=== PATIENT | female | born 1990 | race American Indian/Alaskan Native ===

== ENCOUNTER 2016-11-09 06:02 | Inpatient (IN) | payer MEDICAID ==
--- NOTE | 2016-11-09 08:39 | PCM.LDHP ---
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: Reports: : 7 Para: 4 LMP (Approximate): Other (See Below) (unknown care) - Infectious Disease History Infectious Disease History: Reports: Chicken Pox Social & Family History - Tobacco Use Smoking Status *Q: Current Every Day Smoker Years of Tobacco use: 14 Packs/Tins Daily: 1 Second Hand Smoke Exposure: No - Caffeine Use Caffeine Use: Reports: Tea - Alcohol Use Days Per Week of Alcohol Use: 0 - Recreational Drug Use Recreational Drug Use: No H&P Review of Systems - Review of Systems: Review Of Systems: See Below General: Reports: No Symptoms HEENT: Reports: No Symptoms Pulmonary: Reports: No Symptoms Cardiovascular: Reports: No Symptoms Gastrointestinal: Reports: No Symptoms Genitourinary: Reports: No Symptoms Musculoskeletal: Reports: No Symptoms Skin: Reports: No Symptoms Psychiatric: Reports: No Symptoms Neurological: Reports: No Symptoms Hematologic/Lymphatic: Reports: No Symptoms Immunologic: Reports: No Symptoms L&D Exam - Exam Exam: See Below - Vital Signs Weight: 56.7 kg - Exam General: Alert, Oriented HEENT: PERRLA, Conjunctiva Clear, EACs Clear, EOMI, Hearing Intact, Mucosa Moist & [place], Nares Patent, Normal Nasal Septum, Posterior Pharynx Clear, TMs Clear Neck: Supple, Trachea Midline Lungs: Clear to Auscultation, Normal Respiratory Effort Cardiovascular: Regular Rate, Regular Rhythm GI/Abdominal Exam: Normal Bowel Sounds, Soft, Non-Tender, No Organomegaly, No Distention, No Abnormal Bruit, No Mass, Pelvis Stable Genitourinary: Normal external exam, Normal bimanual exam Back Exam: Normal Inspection, Full Range of Motion Extremities: Normal Inspection, Normal Range of Motion, Non-Tender, No Pedal Edema, Normal Capillary Refill Skin: Warm, Dry, Intact Neurological: Cranial Nerves Intact, Reflexes Equal Bilateral Psychiatric: Alert, Normal Affect, Normal Mood - Patient Data Lab Results Last 24 hrs: Laboratory Results - last 24 hr 11/09/16 11/09/16 Range/Units 06:52 07:00 WBC 12.3 H (4.5-11.0) K/uL RBC 3.81 (3.30-5.50) M/uL Hgb 8.4 L (12.0-15.0) g/dL Hct 27.5 L (36.0-48.0) % MCV 72 L (80-98) fL MCH 22 L (27-31) pg MCHC 31 L (32-36) % Plt Count 191 (150-400) K/uL Neut % (Auto) 79 H (36-66) % Lymph % (Auto) 15 L (24-44) % Delta % (Auto) 5 (2-6) % Eos % (Auto) 1 L (2-4) % Baso % (Auto) 0 (0-1) % Blood Type A POSITIVE Gel Antibody Screen Negative Result Diagrams: 11/09/16 06:52 - Problem List (1) No care in current in third trimester SNOMED Code(s): 791906571, 361650582 ICD Code: O09.33 - SUPRVSN OF PREG W INSUFFICIENT ANTENAT CARE, THIRD TRIMESTER Status: Acute Current Visit: Yes (2) Limited care in third trimester SNOMED Code(s): 947903623, 460742275 ICD Code: O09.33 - SUPRVSN OF PREG W INSUFFICIENT ANTENAT CARE, THIRD TRIMESTER Status: Acute Current Visit: Yes (3) GBS (group B streptococcus) infection SNOMED Code(s): 797594223 ICD Code: A49.1 - STREPTOCOCCAL INFECTION, UNSPECIFIED SITE Status: Acute Current Visit: Yes (4) Multiple gestation Status: Acute Current Visit: Yes Qualifiers: Multiple gestation fetus number: twin gestation Trimester: third trimester (5) Drug use affecting in third trimester SNOMED Code(s): 63938652, 03924081, 583204947 ICD Code: O99.323 - DRUG USE COMPLICATING , THIRD TRIMESTER Status : Acute Current Visit: Yes Problem List Initiated/Reviewed/Updated: Yes Orders Last 24hrs: Active Orders 24 hr Category Date Time Status DRUG SCREEN, URINE [URCHEM] Stat Lab 07/24/17 07:43 Ordered HEPATITIS B SURFACE ANTIGEN [REF] Routine Lab 11/09/16 07:00 Received HEPATITIS C ANTIBODY [REF] Routine Lab 11/09/16 07:00 Received HIV RAPID SCREEN [CHEM] Routine Lab 11/09/16 07:00 Received PATIENT RETYPE [BBK] Routine Lab 11/09/16 07:00 Results RPR-TREP PALLIDIUM AB,REFLEX [REF] Routine Lab 11/09/16 07:00 Received TYPE AND SCREEN [BBK] Routine Lab 11/09/16 07:00 Results Assessment/Plan Comment:: 11/09/2016 26 yo came in in active labor see labor and delivery note
[2016-11-09] MEDS ORDERED: Ibuprofen 600 MG Tab PO PRN (08:44)
[2016-11-09] MEDS ORDERED: Sodium Chloride 0.9% 10 ML Syringe FLUSH PRN (08:51)
--- NOTE | 2016-11-09 09:17 | PCM.DEL ---
L & D Note - General Info Date of Service: 11/09/16 - Delivery Note Labor: Spontaneous Delivery Outcome: Livebirth Delivery Method: Spontaneous Vaginal Delivery Delivery Mode: Spontaneous Nuchal Cord: None Anesthesia Type: None Amniotic Fluid Description: Clear Episiotomy Type: None Laceration: None Placenta: Intact, Spontaneous Cord: 3 Vessels Estimated Blood Loss: 350 [place]: Bulb Syringe, Stimulated, Warmed, Warmer Used Provider: Comfort Newman (see notes ) Post Delivery Events: Other (see below) (unexpected twin delivery) Second Stage Interventions: Reports: Encouragement Given, Pushing Effectively Delivery Comments (Free Text/Narrative):: 11/09/2016 26 yo G7 now P6 came in in active labor to on 11/09/2016 has unknown care and unknown gestation. Dr. Lake delivered the first baby A precipitously normal spontaneous vaginal delivery in SENTHIL position at 0611, then while proceeding to assess patients placenta was noted to still have an enlarged uterus, bimanual exam performed and another baby was noted. Baby B delivered normal spontaneous vaginal delivery in SENTHIL position en caul at 0621. Baby A--9/9/9, weight 4lbs, 11oz, and bulb suctioned, warmed, stimulated, and dried-3 vessel cord Baby B--6/8/8, weight 4lbs 8.5oz, and bulb suctioned, warmed, stimulated, and dried-3 vessel cord Placenta spontaneous and intact-will send to path [id number], no lacerations noted to vagina, perineum, cervix or rectum Baby A to nursery for assessment Baby B under warmer for assessment Mother stable in labor and delivery room - General Info Date of Service: 11/09/16 Admission Dx/Problem (Free Text): Admission Diagnosis/Problem Admission Diagnosis/Problem Functional Status: Reports: Pain Controlled - Review of Systems General: Reports: No Symptoms HEENT: Reports: No Symptoms Pulmonary: Reports: No Symptoms Cardiovascular: Reports: No Symptoms Gastrointestinal: Reports: No Symptoms Genitourinary: Reports: No Symptoms Musculoskeletal: Reports: No Symptoms Skin: Reports: No Symptoms Neurological: Reports: No Symptoms Psychiatric: Reports: No Symptoms - Patient Data Weight - most recent: 56.7 kg Lab Results last 24 hrs: Laboratory Results - last 24 hr 07/24/17 07/24/17 07/24/17 Range/Units 06:52 07:00 07:43 WBC 12.3 H (4.5-11.0) K/uL RBC 3.81 (3.30-5.50) M/uL Hgb 8.4 L (12.0-15.0) g/dL Hct 27.5 L (36.0-48.0) % MCV 72 L (80-98) fL MCH 22 L (27-31) pg MCHC 31 L (32-36) % Plt Count 191 (150-400) K/uL Neut % (Auto) 79 H (36-66) % Lymph % (Auto) 15 L (24-44) % Isabela % (Auto) 5 (2-6) % Eos % (Auto) 1 L (2-4) % Baso % (Auto) 0 (0-1) % Urine Opiates Screen Positive H (NEGATIVE) Ur Oxycodone Screen Negative (NEGATIVE) Urine Methadone Screen Negative (NEGATIVE) Ur Propoxyphene Screen Negative (NEGATIVE) Ur Barbiturates Screen Negative (NEGATIVE) Ur Tricyclics Screen Negative (NEGATIVE) Ur Phencyclidine Scrn Negative (NEGATIVE) Ur Amphetamine Screen Positive H (NEGATIVE) U Methamphetamines Scrn Positive H (NEGATIVE) Urine MDMA Screen Negative (NEGATIVE) U Benzodiazepines Scrn Negative (NEGATIVE) U Cocaine Metab Screen Negative (NEGATIVE) U Marijuana (THC) Screen Positive H (NEGATIVE) Blood Type A POSITIVE Gel Antibody Screen Negative Med Orders - Current: Current Medications Oxytocin/Sodium Chloride (Pitocin In Ns 20 Units/1,000 Ml) 20 unit in 1,000 mls @ 2,997 mls/hr IV ONETIME ONE; 999 MUNITS/MIN PRN Reason: Protocol Stop: 11/09/16 09:22 Ibuprofen (Motrin) 600 mg PO Q6H PRN PRN Reason: Pain Last Admin: 11/09/16 08:57 Dose: 600 mg Sodium Chloride (Saline Flush) 10 ml FLUSH ASDIRECTED PRN PRN Reason: Keep Vein Open Discontinued Medications Oxytocin/Sodium Chloride (Pitocin In Ns 20 Units/1,000 Ml) Confirm Administered Dose 20 unit in 1,000 mls @ as directed .ROUTE .STK-MED ONE Stop: 11/09/16 06:14 Last Admin: 11/09/16 06:15 Dose: 20 unit - Exam General: alert, oriented HEENT: Pupils equal, Pupils reactive, EOMI, Mucous membr. moist/pink Neck: supple Lungs: Clear to Auscultation, Normal Respiratory Effort Cardiovascular: Regular Rate, Regular Rhythm GI/Abdominal Exam: Normal Bowel Sounds, Soft, Non-Tender, No Organomegaly, No Distention, No Abnormal Bruit, No Mass, Pelvis Stable (Female) Exam: Normal External Exam, Normal Bimanual Exam Back Exam: Normal Inspection, Full Range of Motion Extremities: Normal Inspection, Normal Range of Motion, Non-Tender, No Pedal Edema, Normal Capillary Refill Skin: warm, dry, intact Neurological: no new focal deficit Psy/Mental Status: alert, normal affect, normal mood - Problem List & Annotations (1) No care in current in third trimester SNOMED Code(s): 012298466, 606540686 Code(s): O09.33 - SUPRVSN OF PREG W INSUFFICIENT ANTENAT CARE, THIRD TRIMESTER Status: Acute Current Visit: Yes (2) Limited care in third trimester SNOMED Code(s): 938348033, 574686088 Code(s): O09.33 - SUPRVSN OF PREG W INSUFFICIENT ANTENAT CARE, THIRD TRIMESTER Status: Acute Current Visit: Yes (3) GBS (group B streptococcus) infection SNOMED Code(s): 885411287 Code(s): A49.1 - STREPTOCOCCAL INFECTION, UNSPECIFIED SITE Status: Acute Current Visit: Yes (4) Multiple gestation Status: Acute Current Visit: Yes Qualifiers: Multiple gestation fetus number: twin gestation Trimester: third trimester (5) Drug use affecting in third trimester SNOMED Code(s): 18652765, 71764704, 459214730 Code(s): O99.323 - DRUG USE COMPLICATING , THIRD TRIMESTER Status : Acute Current Visit: Yes - Problem List Review Problem List Initiated/Reviewed/Updated: Yes - My Orders Last 24 Hours: My Active Orders 11/09/16 05:55 Patient Status [ADT] Routine Notify Provider Vital Signs [RC] PRN Vital Signs [RC] PER UNIT ROUTINE 11/09/16 06:21 Patient Status [ADT] Routine 11/09/16 07:00 HEPATITIS B SURFACE ANTIGEN [REF] Routine HEPATITIS C ANTIBODY [REF] Routine HIV RAPID SCREEN [CHEM] Routine PATIENT RETYPE [BBK] Routine RPR-TREP PALLIDIUM AB,REFLEX [REF] Routine TYPE AND SCREEN [BBK] Routine 11/09/16 08:44 Ibuprofen [Motrin] 600 mg PO Q6H PRN 11/09/16 08:51 Ambulate [RC] PER UNIT ROUTINE Communication Order [RC] ASDIRECTED Heart Tones [RC] PER UNIT ROUTINE Notify Provider [RC] PRN Sodium Chloride 0.9% [Saline Flush] 10 ml FLUSH ASDIRECTED PRN DVT/VTE Prophylaxis Reflex [OM.PC] Routine Saline Lock Insert [OM.PC] Routine 11/09/16 08:54 VTE/DVT Education [RC] Click to Edit 11/09/16 08:55 Vital Signs [RC] PFP Consult to Home Health [CONS] Routine Consult to Ice Cream Chef [CONS] Routine Assess Lochia [WOMSER] Per Unit Routine Assess Uterine Involution [WOMSER] Per Unit Routine Resuscitation Status Routine 11/09/16 09:02 Oxytocin/Normal Saline [Pitocin in NS 20 Units/1,000 ML] 20 unit in 1,000 ml IV ONETIME 11/09/16 Breakfast Regular Diet [DIET] - Assessment Assessment:: 11/09/2016 Normal Spontaneous Vaginal Delivery of Multiple Gestation with unknown gestation No or little/unknown care Drug use in Precipitous delivery Unknown GBS Unknown Lab - Plan Plan:: 11/09/2016 26 yo came in in active labor see labor and delivery note 11/09/2016 UDS screen Routine Cares Social Service Consult Will plan discharge today if stable since babies are being transported to [place]
[2016-11-09] MEDS ORDERED: Misoprostol 200 MCG Tab ONE (09:23)
[2016-11-09] MEDS ORDERED: Carboprost Tromethamine 250 MCG/1 ML Amp ONE ×2 (09:24→09:53)
[2016-11-09] MEDS ORDERED: Methylergonovine 0.2 MG/1 ML Amp ONE (09:24)
[2016-11-09] MEDS ORDERED: Misoprostol 200 MCG Tab PO ONE (09:30)
[2016-11-09] MEDS ORDERED: Methylergonovine 0.2 MG/1 ML Amp IM PRN (09:30)
[2016-11-09] MEDS ORDERED: Acetaminophen/HYDROcodone 325-5 MG Tab PO PRN (09:31)
--- NOTE | 2016-11-09 09:35 | PCM.PNPP ---
- General Info Date of Service: 11/09/16 - Review of Systems General: Reports: No Symptoms HEENT: Reports: No Symptoms Pulmonary: Reports: No Symptoms Cardiovascular: Reports: No Symptoms Gastrointestinal: Reports: No Symptoms Genitourinary: Reports: No Symptoms Musculoskeletal: Reports: No Symptoms Skin: Reports: No Symptoms Neurological: Reports: No Symptoms Psychiatric: Reports: No Symptoms - General Info Date of Service: 11/09/16 - Patient Data Weight - most recent: 56.7 kg Lab Results - last 24 hrs: Laboratory Results - last 24 hr 11/09/16 11/09/16 11/09/16 Range/Units 06:52 07:00 07:00 WBC 12.3 H (4.5-11.0) K/uL RBC 3.81 (3.30-5.50) M/uL Hgb 8.4 L (12.0-15.0) g/dL Hct 27.5 L (36.0-48.0) % MCV 72 L (80-98) fL MCH 22 L (27-31) pg MCHC 31 L (32-36) % Plt Count 191 (150-400) K/uL Neut % (Auto) 79 H (36-66) % Lymph % (Auto) 15 L (24-44) % Hale % (Auto) 5 (2-6) % Eos % (Auto) 1 L (2-4) % Baso % (Auto) 0 (0-1) % Urine Opiates Screen (NEGATIVE) Ur Oxycodone Screen (NEGATIVE) Urine Methadone Screen (NEGATIVE) Ur Propoxyphene Screen (NEGATIVE) Ur Barbiturates Screen (NEGATIVE) Ur Tricyclics Screen (NEGATIVE) Ur Phencyclidine Scrn (NEGATIVE) Ur Amphetamine Screen (NEGATIVE) U Methamphetamines Scrn (NEGATIVE) Urine MDMA Screen (NEGATIVE) U Benzodiazepines Scrn (NEGATIVE) U Cocaine Metab Screen (NEGATIVE) U Marijuana (THC) Screen (NEGATIVE) HIV-1 Ab Rapid Screen Non-reactive (NON-REACT.) Blood Type A POSITIVE Gel Antibody Screen Negative 11/09/16 Range/Units 07:43 WBC (4.5-11.0) K/uL RBC (3.30-5.50) M/uL Hgb (12.0-15.0) g/dL Hct (36.0-48.0) % MCV (80-98) fL MCH (27-31) pg MCHC (32-36) % Plt Count (150-400) K/uL Neut % (Auto) (36-66) % Lymph % (Auto) (24-44) % Hale % (Auto) (2-6) % Eos % (Auto) (2-4) % Baso % (Auto) (0-1) % Urine Opiates Screen Positive H (NEGATIVE) Ur Oxycodone Screen Negative (NEGATIVE) Urine Methadone Screen Negative (NEGATIVE) Ur Propoxyphene Screen Negative (NEGATIVE) Ur Barbiturates Screen Negative (NEGATIVE) Ur Tricyclics Screen Negative (NEGATIVE) Ur Phencyclidine Scrn Negative (NEGATIVE) Ur Amphetamine Screen Positive H (NEGATIVE) U Methamphetamines Scrn Positive H (NEGATIVE) Urine MDMA Screen Negative (NEGATIVE) U Benzodiazepines Scrn Negative (NEGATIVE) U Cocaine Metab Screen Negative (NEGATIVE) U Marijuana (THC) Screen Positive H (NEGATIVE) HIV-1 Ab Rapid Screen (NON-REACT.) Blood Type Gel Antibody Screen Med Orders - Current: Current Medications Ibuprofen (Motrin) 600 mg PO Q6H PRN PRN Reason: Pain Last Admin: 11/09/16 08:57 Dose: 600 mg Sodium Chloride (Saline Flush) 10 ml FLUSH ASDIRECTED PRN PRN Reason: Keep Vein Open Discontinued Medications Carboprost Tromethamine (Hemabate Ds) Confirm Administered Dose 250 mcg .ROUTE .STK-MED ONE Stop: 11/09/16 09:25 Oxytocin/Sodium Chloride (Pitocin In Ns 20 Units/1,000 Ml) Confirm Administered Dose 20 unit in 1,000 mls @ as directed .ROUTE .STK-MED ONE Stop: 11/09/16 06:14 Last Admin: 11/09/16 06:15 Dose: 20 unit Oxytocin/Sodium Chloride (Pitocin In Ns 20 Units/1,000 Ml) 20 unit in 1,000 mls @ 2,997 mls/hr IV ONETIME ONE; 999 MUNITS/MIN PRN Reason: Protocol Stop: 11/09/16 09:22 Methylergonovine Maleate (Methergine) Confirm Administered Dose 0.2 mg .ROUTE .STK-MED ONE Stop: 11/09/16 09:25 Last Admin: 11/09/16 09:27 Dose: 0.2 mg Misoprostol (Cytotec) Confirm Administered Dose 800 mcg .ROUTE .STK-MED ONE Stop: 11/09/16 09:24 Last Admin: 11/09/16 09:29 Dose: 800 mcg - Interaction Support Person: Significant Other - Recovery Exam Fundal Tone: Firm Fundal Level: 1 Fingerbreadths Below Umbilicus Fundal Placement: Midline Lochia Amount: Moderate Lochia Color: Rubra/Red Episiotomy/Laceration: None - Exam General: alert, oriented HEENT: Pupils equal Neck: supple Lungs: Clear to Auscultation, Normal Respiratory Effort Cardiovascular: Regular Rate, Regular Rhythm GI/Abdominal Exam: Normal Bowel Sounds, Soft, Non-Tender, No Organomegaly, No Distention, No Abnormal Bruit, No Mass, Pelvis Stable Extremities: Normal Inspection, Normal Range of Motion, Non-Tender, No Pedal Edema, Normal Capillary Refill Skin: warm, dry, intact Neurological: no new focal deficit Psy/Mental Status: alert, normal affect, normal mood Physical Findings Comment:: bimanual exam performed, no clots noted, no hematoma or lacerations noted - Problem List & Annotations (1) No care in current in third trimester SNOMED Code(s): 484933142, 917687430 Code(s): O09.33 - SUPRVSN OF PREG W INSUFFICIENT ANTENAT CARE, THIRD TRIMESTER Status: Acute Current Visit: Yes (2) Limited care in third trimester SNOMED Code(s): 501332145, 992935231 Code(s): O09.33 - SUPRVSN OF PREG W INSUFFICIENT ANTENAT CARE, THIRD TRIMESTER Status: Acute Current Visit: Yes (3) GBS (group B streptococcus) infection SNOMED Code(s): 667388833 Code(s): A49.1 - STREPTOCOCCAL INFECTION, UNSPECIFIED SITE Status: Acute Current Visit: Yes (4) Multiple gestation Status: Acute Current Visit: Yes Qualifiers: Multiple gestation fetus number: twin gestation Trimester: third trimester (5) Drug use affecting in third trimester SNOMED Code(s): 55684136, 11513835, 380314955 Code(s): O99.323 - DRUG USE COMPLICATING , THIRD TRIMESTER Status : Acute Current Visit: Yes (6) Anemia complicating SNOMED Code(s): 71912480 Code(s): O99.019 - ANEMIA COMPLICATING , UNSPECIFIED TRIMESTER Status: Acute Current Visit: Yes (7) hemorrhage SNOMED Code(s): 14581883 Code(s): O72.1 - OTHER IMMEDIATE HEMORRHAGE Status: Acute Current Visit: Yes - Problem List Review Problem List Initiated/Reviewed/Updated: Yes - My Orders Last 24 Hours: My Active Orders 11/09/16 05:55 Patient Status [ADT] Routine Notify Provider Vital Signs [RC] PRN Vital Signs [RC] PER UNIT ROUTINE 11/09/16 06:21 Patient Status [ADT] Routine 11/09/16 07:00 HEPATITIS B SURFACE ANTIGEN [REF] Routine HEPATITIS C ANTIBODY [REF] Routine PATIENT RETYPE [BBK] Routine RPR-TREP PALLIDIUM AB,REFLEX [REF] Routine TYPE AND SCREEN [BBK] Routine 11/09/16 08:44 Ibuprofen [Motrin] 600 mg PO Q6H PRN 11/09/16 08:51 Ambulate [RC] PER UNIT ROUTINE Communication Order [RC] ASDIRECTED Heart Tones [RC] PER UNIT ROUTINE Notify Provider [RC] PRN Sodium Chloride 0.9% [Saline Flush] 10 ml FLUSH ASDIRECTED PRN DVT/VTE Prophylaxis Reflex [OM.PC] Routine Saline Lock Insert [OM.PC] Routine 11/09/16 08:54 VTE/DVT Education [RC] Click to Edit 11/09/16 08:55 Vital Signs [RC] PFP Consult to Home Health [CONS] Routine Consult to Appliance Service Supervisor [CONS] Routine Assess Lochia [WOMSER] Per Unit Routine Assess Uterine Involution [WOMSER] Per Unit Routine Resuscitation Status Routine 11/09/16 09:30 Methylergonovine [Methergine] 0.2 mg IM Q4H PRN Misoprostol [Cytotec] 800 mcg PO ONETIME ONE 11/09/16 09:31 Acetaminophen/HYDROcodone [[place] 325-5 MG] 1 - 2 tab PO Q4H PRN 11/09/16 Breakfast Regular Diet [DIET] - Assessment Assessment:: 11/09/2016 Normal Spontaneous Vaginal Delivery of Multiple Gestation with unknown gestation No or little/unknown care Drug use in Precipitous delivery Unknown GBS Unknown Lab 11/09/2016 Anemia-Hgb 8.6 Hemorrhage now stable - Plan Plan:: 11/09/2016 26 yo came in in active labor see labor and delivery note 11/09/2016 UDS screen Routine Cares Social Service Consult Will plan discharge today if stable since babies are being transported to [place] 11/09/2016 Continue to monitor bleeding and fundus Methergine 0.2mg IM now Cytotec 800mcg oral now
[2016-11-09] MEDS ORDERED: Lactated Ringers 1,000 ML IV SCH (09:45)
--- NOTE | 2016-11-09 09:48 | PCM.PNPP ---
- General Info Date of Service: 11/09/16 Admission Dx/Problem (Free Text): Admission Diagnosis/Problem Admission Diagnosis/Problem - Patient Data Weight - most recent: 56.7 kg Lab Results - last 24 hrs: Laboratory Results - last 24 hr 11/09/16 11/09/16 11/09/16 Range/Units 06:52 07:00 07:00 WBC 12.3 H (4.5-11.0) K/uL RBC 3.81 (3.30-5.50) M/uL Hgb 8.4 L (12.0-15.0) g/dL Hct 27.5 L (36.0-48.0) % MCV 72 L (80-98) fL MCH 22 L (27-31) pg MCHC 31 L (32-36) % Plt Count 191 (150-400) K/uL Neut % (Auto) 79 H (36-66) % Lymph % (Auto) 15 L (24-44) % [place] % (Auto) 5 (2-6) % Eos % (Auto) 1 L (2-4) % Baso % (Auto) 0 (0-1) % Urine Opiates Screen (NEGATIVE) Ur Oxycodone Screen (NEGATIVE) Urine Methadone Screen (NEGATIVE) Ur Propoxyphene Screen (NEGATIVE) Ur Barbiturates Screen (NEGATIVE) Ur Tricyclics Screen (NEGATIVE) Ur Phencyclidine Scrn (NEGATIVE) Ur Amphetamine Screen (NEGATIVE) U Methamphetamines Scrn (NEGATIVE) Urine MDMA Screen (NEGATIVE) U Benzodiazepines Scrn (NEGATIVE) U Cocaine Metab Screen (NEGATIVE) U Marijuana (THC) Screen (NEGATIVE) HIV-1 Ab Rapid Screen Non-reactive (NON-REACT.) Blood Type A POSITIVE Gel Antibody Screen Negative 11/09/16 Range/Units 07:43 WBC (4.5-11.0) K/uL RBC (3.30-5.50) M/uL Hgb (12.0-15.0) g/dL Hct (36.0-48.0) % MCV (80-98) fL MCH (27-31) pg MCHC (32-36) % Plt Count (150-400) K/uL Neut % (Auto) (36-66) % Lymph % (Auto) (24-44) % [place] % (Auto) (2-6) % Eos % (Auto) (2-4) % Baso % (Auto) (0-1) % Urine Opiates Screen Positive H (NEGATIVE) Ur Oxycodone Screen Negative (NEGATIVE) Urine Methadone Screen Negative (NEGATIVE) Ur Propoxyphene Screen Negative (NEGATIVE) Ur Barbiturates Screen Negative (NEGATIVE) Ur Tricyclics Screen Negative (NEGATIVE) Ur Phencyclidine Scrn Negative (NEGATIVE) Ur Amphetamine Screen Positive H (NEGATIVE) U Methamphetamines Scrn Positive H (NEGATIVE) Urine MDMA Screen Negative (NEGATIVE) U Benzodiazepines Scrn Negative (NEGATIVE) U Cocaine Metab Screen Negative (NEGATIVE) U Marijuana (THC) Screen Positive H (NEGATIVE) HIV-1 Ab Rapid Screen (NON-REACT.) Blood Type Gel Antibody Screen Med Orders - Current: Current Medications Hydrocodone Bitart/Acetaminophen (Nada 325-5 Mg) 1 - 2 tab PO Q4H PRN PRN Reason: Pain Ibuprofen (Motrin) 600 mg PO Q6H PRN PRN Reason: Pain Last Admin: 11/09/16 08:57 Dose: 600 mg Methylergonovine Maleate (Methergine) 0.2 mg IM Q4H PRN PRN Reason: Bleeding Sodium Chloride (Saline Flush) 10 ml FLUSH ASDIRECTED PRN PRN Reason: Keep Vein Open Discontinued Medications Carboprost Tromethamine (Hemabate Ds) Confirm Administered Dose 250 mcg .ROUTE .STK-MED ONE Stop: 11/09/16 09:25 Oxytocin/Sodium Chloride (Pitocin In Ns 20 Units/1,000 Ml) Confirm Administered Dose 20 unit in 1,000 mls @ as directed .ROUTE .STK-MED ONE Stop: 11/09/16 06:14 Last Admin: 11/09/16 06:15 Dose: 20 unit Oxytocin/Sodium Chloride (Pitocin In Ns 20 Units/1,000 Ml) 20 unit in 1,000 mls @ 2,997 mls/hr IV ONETIME ONE; 999 MUNITS/MIN PRN Reason: Protocol Stop: 11/09/16 09:22 Methylergonovine Maleate (Methergine) Confirm Administered Dose 0.2 mg .ROUTE .STK-MED ONE Stop: 11/09/16 09:25 Last Admin: 11/09/16 09:27 Dose: 0.2 mg Misoprostol (Cytotec) Confirm Administered Dose 800 mcg .ROUTE .STK-MED ONE Stop: 11/09/16 09:24 Last Admin: 11/09/16 09:29 Dose: 800 mcg Misoprostol (Cytotec) 800 mcg PO ONETIME ONE Stop: 11/09/16 09:31 - Interaction Support Person: Significant Other - Recovery Exam Fundal Tone: Firm Fundal Level: 1 Fingerbreadths Below Umbilicus Fundal Placement: Midline Lochia Amount: Moderate Lochia Color: Rubra/Red Episiotomy/Laceration: None - Problem List & Annotations (1) No care in current in third trimester SNOMED Code(s): 608512847, 884675862 Code(s): O09.33 - SUPRVSN OF PREG W INSUFFICIENT ANTENAT CARE, THIRD TRIMESTER Status: Acute Current Visit: Yes (2) Limited care in third trimester SNOMED Code(s): 552486715, 677345546 Code(s): O09.33 - SUPRVSN OF PREG W INSUFFICIENT ANTENAT CARE, THIRD TRIMESTER Status: Acute Current Visit: Yes (3) GBS (group B streptococcus) infection SNOMED Code(s): 000952542 Code(s): A49.1 - STREPTOCOCCAL INFECTION, UNSPECIFIED SITE Status: Acute Current Visit: Yes (4) Multiple gestation Status: Acute Current Visit: Yes Qualifiers: Multiple gestation fetus number: twin gestation Trimester: third trimester (5) Drug use affecting in third trimester SNOMED Code(s): 97611271, 82927097, 005475190 Code(s): O99.323 - DRUG USE COMPLICATING , THIRD TRIMESTER Status : Acute Current Visit: Yes (6) Anemia complicating SNOMED Code(s): 68105869 Code(s): O99.019 - ANEMIA COMPLICATING , UNSPECIFIED TRIMESTER Status: Acute Current Visit: Yes (7) hemorrhage SNOMED Code(s): 79405290 Code(s): O72.1 - OTHER IMMEDIATE HEMORRHAGE Status: Acute Current Visit: Yes - Problem List Review Problem List Initiated/Reviewed/Updated: Yes - My Orders Last 24 Hours: My Active Orders 11/09/16 05:55 Patient Status [ADT] Routine Notify Provider Vital Signs [RC] PRN Vital Signs [RC] PER UNIT ROUTINE 11/09/16 06:21 Patient Status [ADT] Routine 11/09/16 07:00 HEPATITIS B SURFACE ANTIGEN [REF] Routine HEPATITIS C ANTIBODY [REF] Routine PATIENT RETYPE [BBK] Routine RPR-TREP PALLIDIUM AB,REFLEX [REF] Routine TYPE AND SCREEN [BBK] Routine 11/09/16 08:44 Ibuprofen [Motrin] 600 mg PO Q6H PRN 11/09/16 08:51 Ambulate [RC] PER UNIT ROUTINE Communication Order [RC] ASDIRECTED Heart Tones [RC] PER UNIT ROUTINE Notify Provider [RC] PRN Sodium Chloride 0.9% [Saline Flush] 10 ml FLUSH ASDIRECTED PRN DVT/VTE Prophylaxis Reflex [OM.PC] Routine Saline Lock Insert [OM.PC] Routine 11/09/16 08:54 VTE/DVT Education [RC] Click to Edit 11/09/16 08:55 Vital Signs [RC] PFP Consult to Home Health [CONS] Routine Consult to Stores Assistant [CONS] Routine Assess Lochia [WOMSER] Per Unit Routine Assess Uterine Involution [WOMSER] Per Unit Routine Resuscitation Status Routine 11/09/16 09:30 Methylergonovine [Methergine] 0.2 mg IM Q4H PRN 11/09/16 09:31 Acetaminophen/HYDROcodone [Nada 325-5 MG] 1 - 2 tab PO Q4H PRN 11/09/16 09:45 Lactated Ringers [Ringers, Lactated] 1,000 ml IV BOLUS 11/09/16 Breakfast Regular Diet [DIET] - Assessment Assessment:: 11/09/2016 Normal Spontaneous Vaginal Delivery of Multiple Gestation with unknown gestation No or little/unknown care Drug use in Precipitous delivery Unknown GBS Unknown Lab 11/09/2016 Anemia-Hgb 8.6 Hemorrhage now stable 11/09/2016 500ml clot expressed, bleeding beginning to slow now - Plan Plan:: 11/09/2016 26 yo came in in active labor see labor and delivery note 11/09/2016 UDS screen Routine Cares Social Service Consult Will plan discharge today if stable since babies are being transported to [place] 11/09/2016 Continue to monitor bleeding and fundus Methergine 0.2mg IM now Cytotec 800mcg oral now 11/09/2016 Continue to monitor bleeding and fundus will not plan discharge till stable
[2016-11-09] MEDS ORDERED: Ondansetron 4 MG/2 ML SDV ONE (10:18)
[2016-11-09] MEDS ORDERED: Ondansetron 4 MG/2 ML SDV IVPUSH PRN (10:19)
[2016-11-09] MEDS ORDERED: Carboprost Tromethamine 250 MCG/1 ML Amp IM ONE (10:30)
--- NOTE | 2016-11-09 12:32 | PCM.PNPP ---
- General Info Date of Service: 11/09/16 Admission Dx/Problem (Free Text): Admission Diagnosis/Problem Admission Diagnosis/Problem Functional Status: Reports: Pain Controlled - Review of Systems General: Reports: No Symptoms HEENT: Reports: No Symptoms Pulmonary: Reports: No Symptoms Cardiovascular: Reports: No Symptoms Gastrointestinal: Reports: No Symptoms Genitourinary: Reports: No Symptoms Musculoskeletal: Reports: No Symptoms Skin: Reports: No Symptoms Neurological: Reports: No Symptoms Psychiatric: Reports: No Symptoms - General Info Date of Service: 11/09/16 - Patient Data Vital Signs - most recent: Last Vital Signs Temp 35.9 C 11/09/16 07:50 Pulse 59 L 11/09/16 11:25 Resp 16 11/09/16 09:21 BP 115/112 H 11/09/16 11:25 Pulse Ox 98 11/09/16 07:00 Weight - most recent: 56.7 kg I&O - last 24 hours: Intake & Output 11/08/16 11/09/16 11/09/16 22:59 06:59 14:59 Output Total 150 800 Balance -150 -800 Lab Results - last 24 hrs: Laboratory Results - last 24 hr 11/09/16 11/09/16 11/09/16 Range/Units 06:52 07:00 07:00 WBC 12.3 H (4.5-11.0) K/uL RBC 3.81 (3.30-5.50) M/uL Hgb 8.4 L (12.0-15.0) g/dL Hct 27.5 L (36.0-48.0) % MCV 72 L (80-98) fL MCH 22 L (27-31) pg MCHC 31 L (32-36) % Plt Count 191 (150-400) K/uL Neut % (Auto) 79 H (36-66) % Lymph % (Auto) 15 L (24-44) % [place] % (Auto) 5 (2-6) % Eos % (Auto) 1 L (2-4) % Baso % (Auto) 0 (0-1) % Urine Opiates Screen (NEGATIVE) Ur Oxycodone Screen (NEGATIVE) Urine Methadone Screen (NEGATIVE) Ur Propoxyphene Screen (NEGATIVE) Ur Barbiturates Screen (NEGATIVE) Ur Tricyclics Screen (NEGATIVE) Ur Phencyclidine Scrn (NEGATIVE) Ur Amphetamine Screen (NEGATIVE) U Methamphetamines Scrn (NEGATIVE) Urine MDMA Screen (NEGATIVE) U Benzodiazepines Scrn (NEGATIVE) U Cocaine Metab Screen (NEGATIVE) U Marijuana (THC) Screen (NEGATIVE) HIV-1 Ab Rapid Screen Non-reactive (NON-REACT.) Blood Type A POSITIVE Gel Antibody Screen Negative 11/09/16 Range/Units 07:43 WBC (4.5-11.0) K/uL RBC (3.30-5.50) M/uL Hgb (12.0-15.0) g/dL Hct (36.0-48.0) % MCV (80-98) fL MCH (27-31) pg MCHC (32-36) % Plt Count (150-400) K/uL Neut % (Auto) (36-66) % Lymph % (Auto) (24-44) % [place] % (Auto) (2-6) % Eos % (Auto) (2-4) % Baso % (Auto) (0-1) % Urine Opiates Screen Positive H (NEGATIVE) Ur Oxycodone Screen Negative (NEGATIVE) Urine Methadone Screen Negative (NEGATIVE) Ur Propoxyphene Screen Negative (NEGATIVE) Ur Barbiturates Screen Negative (NEGATIVE) Ur Tricyclics Screen Negative (NEGATIVE) Ur Phencyclidine Scrn Negative (NEGATIVE) Ur Amphetamine Screen Positive H (NEGATIVE) U Methamphetamines Scrn Positive H (NEGATIVE) Urine MDMA Screen Negative (NEGATIVE) U Benzodiazepines Scrn Negative (NEGATIVE) U Cocaine Metab Screen Negative (NEGATIVE) U Marijuana (THC) Screen Positive H (NEGATIVE) HIV-1 Ab Rapid Screen (NON-REACT.) Blood Type Gel Antibody Screen Med Orders - Current: Current Medications Hydrocodone Bitart/Acetaminophen (White 325-5 Mg) 1 - 2 tab PO Q4H PRN PRN Reason: Pain Lactated Ringer's (Ringers, Lactated) 1,000 mls @ 999 mls/hr IV BOLUS GINETTE Ibuprofen (Motrin) 600 mg PO Q6H PRN PRN Reason: Pain Last Admin: 11/09/16 08:57 Dose: 600 mg Methylergonovine Maleate (Methergine) 0.2 mg IM Q4H PRN PRN Reason: Bleeding Ondansetron HCl (Zofran) 4 mg IVPUSH Q4H PRN PRN Reason: Nausea/Vomiting Last Admin: 11/09/16 10:37 Dose: 4 mg Sodium Chloride (Saline Flush) 10 ml FLUSH ASDIRECTED PRN PRN Reason: Keep Vein Open Discontinued Medications Carboprost Tromethamine (Hemabate Ds) Confirm Administered Dose 250 mcg .ROUTE .STK-MED ONE Stop: 11/09/16 09:25 Last Admin: 11/09/16 12:04 Dose: Not Given Carboprost Tromethamine (Hemabate Ds) Confirm Administered Dose 250 mcg .ROUTE .STK-MED ONE Stop: 11/09/16 09:54 Last Admin: 11/09/16 09:59 Dose: 250 mcg Carboprost Tromethamine (Hemabate Ds) 250 mcg IM ONETIME ONE Stop: 11/09/16 10:31 Last Admin: 11/09/16 12:05 Dose: Not Given Oxytocin/Sodium Chloride (Pitocin In Ns 20 Units/1,000 Ml) Confirm Administered Dose 20 unit in 1,000 mls @ as directed .ROUTE .STK-MED ONE Stop: 11/09/16 06:14 Last Admin: 11/09/16 06:15 Dose: 20 unit Oxytocin/Sodium Chloride (Pitocin In Ns 20 Units/1,000 Ml) 20 unit in 1,000 mls @ 2,997 mls/hr IV ONETIME ONE; 999 MUNITS/MIN PRN Reason: Protocol Stop: 11/09/16 09:22 Last Admin: 11/09/16 10:06 Dose: 999 munits/min, 2,997 mls/hr Methylergonovine Maleate (Methergine) Confirm Administered Dose 0.2 mg .ROUTE .STK-MED ONE Stop: 11/09/16 09:25 Last Admin: 11/09/16 09:27 Dose: 0.2 mg Misoprostol (Cytotec) Confirm Administered Dose 800 mcg .ROUTE .STK-MED ONE Stop: 11/09/16 09:24 Last Admin: 11/09/16 09:29 Dose: 800 mcg Misoprostol (Cytotec) 800 mcg PO ONETIME ONE Stop: 11/09/16 09:31 Last Admin: 11/09/16 12:06 Dose: Not Given Ondansetron HCl (Zofran) Confirm Administered Dose 4 mg .ROUTE .STK-MED ONE Stop: 11/09/16 10:19 Last Admin: 11/09/16 12:05 Dose: Not Given - Interaction Support Person: Significant Other - Recovery Exam Fundal Tone: Firm Fundal Level: 3 Fingerbreadths Above Umbilicus Fundal Placement: Midline Lochia Amount: Moderate Lochia Color: Rubra/Red Perineum Description: Intact, Minimal Bruising/Swelling Episiotomy/Laceration: None Bladder Status: Voiding - Exam General: alert, oriented HEENT: Pupils equal Neck: supple Lungs: Clear to Auscultation, Normal Respiratory Effort Cardiovascular: Regular Rate, Regular Rhythm GI/Abdominal Exam: Normal Bowel Sounds, Soft, Non-Tender, No Organomegaly, No Distention, No Abnormal Bruit, No Mass, Pelvis Stable Extremities: Normal Inspection, Normal Range of Motion, Non-Tender, No Pedal Edema, Normal Capillary Refill Skin: warm, dry, intact Neurological: no new focal deficit Psy/Mental Status: alert, normal affect, normal mood - Problem List & Annotations (1) No care in current in third trimester SNOMED Code(s): 254285814, 518340099 Code(s): O09.33 - SUPRVSN OF PREG W INSUFFICIENT ANTENAT CARE, THIRD TRIMESTER Status: Acute Current Visit: Yes (2) Limited care in third trimester SNOMED Code(s): 221402100, 893904735 Code(s): O09.33 - SUPRVSN OF PREG W INSUFFICIENT ANTENAT CARE, THIRD TRIMESTER Status: Acute Current Visit: Yes (3) GBS (group B streptococcus) infection SNOMED Code(s): 572162897 Code(s): A49.1 - STREPTOCOCCAL INFECTION, UNSPECIFIED SITE Status: Acute Current Visit: Yes (4) Multiple gestation Status: Acute Current Visit: Yes Qualifiers: Multiple gestation fetus number: twin gestation Trimester: third trimester (5) Drug use affecting in third trimester SNOMED Code(s): 89828098, 58119327, 242822692 Code(s): O99.323 - DRUG USE COMPLICATING , THIRD TRIMESTER Status : Acute Current Visit: Yes (6) Anemia complicating SNOMED Code(s): 48639309 Code(s): O99.019 - ANEMIA COMPLICATING , UNSPECIFIED TRIMESTER Status: Acute Current Visit: Yes (7) hemorrhage SNOMED Code(s): 06835626 Code(s): O72.1 - OTHER IMMEDIATE HEMORRHAGE Status: Acute Current Visit: Yes - Problem List Review Problem List Initiated/Reviewed/Updated: Yes - My Orders Last 24 Hours: My Active Orders 11/09/16 05:55 Patient Status [ADT] Routine Notify Provider Vital Signs [RC] PRN 11/09/16 06:21 Patient Status [ADT] Routine 11/09/16 07:00 HEPATITIS B SURFACE ANTIGEN [REF] Routine HEPATITIS C ANTIBODY [REF] Routine RPR-TREP PALLIDIUM AB,REFLEX [REF] Routine 11/09/16 08:44 Ibuprofen [Motrin] 600 mg PO Q6H PRN 11/09/16 08:51 Ambulate [RC] PER UNIT ROUTINE Sodium Chloride 0.9% [Saline Flush] 10 ml FLUSH ASDIRECTED PRN DVT/VTE Prophylaxis Reflex [OM.PC] Routine Saline Lock Insert [OM.PC] Routine 11/09/16 08:54 VTE/DVT Education [RC] Click to Edit 11/09/16 08:55 Vital Signs [RC] PFP Consult to Home Health [CONS] Routine Consult to Organization Development Consultant [CONS] Routine Assess Lochia [WOMSER] Per Unit Routine Assess Uterine Involution [WOMSER] Per Unit Routine Resuscitation Status Routine 11/09/16 09:30 Methylergonovine [Methergine] 0.2 mg IM Q4H PRN 11/09/16 09:31 Acetaminophen/HYDROcodone [White 325-5 MG] 1 - 2 tab PO Q4H PRN 11/09/16 09:45 Lactated Ringers [Ringers, Lactated] 1,000 ml IV BOLUS 11/09/16 10:19 Ondansetron [Zofran] 4 mg IVPUSH Q4H PRN 11/09/16 Breakfast Regular Diet [DIET] - Assessment Assessment:: 11/09/2016 Normal Spontaneous Vaginal Delivery of Multiple Gestation with unknown gestation No or little/unknown care Drug use in Precipitous delivery Unknown GBS Unknown Lab 11/09/2016 Anemia-Hgb 8.6 Hemorrhage now stable 11/09/2016 500ml clot expressed, bleeding beginning to slow now 11/09/2016 Fundus firm but up 3 now with moderate flow Unable to massage any more clots out Decided to transfer for possible D&C Hemorrhage - Plan Plan:: 11/09/2016 26 yo came in in active labor see labor and delivery note 11/09/2016 UDS screen Routine Cares Social Service Consult Will plan discharge today if stable since babies are being transported to [place] 11/09/2016 Continue to monitor bleeding and fundus Methergine 0.2mg IM now Cytotec 800mcg oral now 11/09/2016 Continue to monitor bleeding and fundus will not plan discharge till stable 11/10/[address] Dunn in [facility] to transfer patient to there care Initiate second IV Continue to monitor VS Continue to monitor bleeding
[2016-11-09 13:14] VITALS: BP 117/72
== END 2016-11-09 13:00 | DRG 774 ==
LOC: JP.OBCHECK 06:02 → JP.OB 06:11
PROVIDERS: ADMIT Advanced Practice Midwife; ATTEND Advanced Practice Midwife
PROC: 10E0XZZ Delivery of Products of Conception, External Approach (ICD-10-PCS; principal; 2016-11-09)
DX: O62.3 Precipitate labor (principal); O72.1 Other immediate postpartum hemorrhage; O99.323 Drug use complicating pregnancy, third trimester; O99.321 Drug use complicating pregnancy, first trimester; O99.322 Drug use complicating pregnancy, second trimester; O99.824 Streptococcus B carrier state complicating childbirth; Z3A.00 Weeks of gestation of pregnancy not specified; Z37.2 Twins, both liveborn; O99.019 Anemia complicating pregnancy, unspecified trimester; O30.043 Twin pregnancy, dichorionic/diamniotic, third trimester
CPT/HCPCS: 36415; 80305; 85025; 86780; 86803; 86850; 86900; 86901; 87340; 87449; 88307; 99211; A9270-GY; J2210; J2405; J2590

== ENCOUNTER 2019-02-16 22:17 | Emergency (ER) | payer MEDICAID ==
[2019-02-16 22:34] VITALS: BP 109/66; PULSE 98
[2019-02-16] MEDS ORDERED: cefTRIAXone 1 GM, Lidocaine 1% 2.1 ML IM ONE ×2 (22:41)
--- NOTE | 2019-02-16 22:46 | EDM.PDOC ---
ED HPI GENERAL MEDICAL PROBLEM - General Chief Complaint: Skin Complaint Stated Complaint: INFECTED RIGHT ANKLE Time Seen by Provider: 02/16/19 22:39 Source of Information: Reports: Patient, RN Notes Reviewed History Limitations: Reports: No Limitations - History of Present Illness INITIAL COMMENTS - FREE TEXT/NARRATIVE: 28-year-old female presents emergency department today with a ulcer on her right ankle, initially this was a blister broke open and then she developed an infection in his ankle she has had thick. 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 Hematologic History: Reports: Anemia, Iron Deficiency - Infectious Disease History Infectious Disease History: Reports: Chicken Pox - Past Surgical History Head Surgeries/Procedures: Reports: None GI Surgical History: Reports: None Female Surgical History: Reports: None Social & Family History - Family History Family Medical History: Noncontributory - Tobacco Use Smoking Status *Q: Current Every Day Smoker Years of Tobacco use: 12 Packs/Tins Daily: 0.2 - Caffeine Use Caffeine Use: Reports: Coffee, Soda - Recreational Drug Use Recreational Drug Use: No ED ROS GENERAL - Review of Systems Review Of Systems: See Below Constitutional: Denies: Fever, Chills Skin: Reports: Pallor, Erythema, Wound ED EXAM, SKIN/RASH Exam: See Below Text/Narrative:: Examination of the right ankle there is an ulcer that is open about the size of a $0.50 piece there is erythema around that it is tender to the touch it is warm to the touch Exam Limited By: No Limitations General Appearance: Alert, WD/WN, No Apparent Distress Course - Vital Signs Last Recorded V/S: Last Vital Signs Temp 96.5 F 02/16/19 22:33 Pulse 98 02/16/19 22:33 Resp 14 02/16/19 22:33 BP 109/66 02/16/19 22:33 Pulse Ox 98 02/16/19 22:33 - Orders/Labs/Meds Meds: Medications Discontinued Medications Generic Name Dose Route Start Last Admin Trade Name Michelle PRN Reason Stop Dose Admin Ceftriaxone Sodium 1 gm/ 0 gm 02/16/19 22:41 Lidocaine HCl 2.1 ml IM 02/16/19 22:42 ONETIME ONE Departure - Departure Time of Disposition: 22:45 Disposition: Home, Self-Care 01 Condition: Fair Clinical Impression: Cellulitis Qualifiers: Site of cellulitis: extremity Site of cellulitis of extremity: lower extremity Laterality: right Qualified Code(s): L03.115 - Cellulitis of right lower limb - Discharge Information Referrals: PCP,None [Primary Care Provider] - Additional Instructions: Take full course of antibiotics, Please followup with your primary care provider in 3-5 days if not better, please call return to the emergency department with worsening of symptoms. - Assessment/Plan Plan: Assessment Acuity = acute Site and laterality = cellulitis right ankle Etiology = probable bacterial cause Manifestations = none Location of injury = Home Lab values = none Plan She is given 1 g Rocephin IM followed by a Keflex 500 mg by mouth 3 times a day for 10 days follow-up primary care 3-5 days if no improvement This note was dictated using [employer] voice recognition software please call with any questions on syntax or grammar.
== END 2019-02-16 23:12 | disposition home or self-care (01) ==
LOC: JP.ED 22:17
DX: L03.115 Cellulitis of right lower limb (principal); F17.210 Nicotine dependence, cigarettes, uncomplicated
CPT/HCPCS: 96372; 99283; J0696; J2001

== ENCOUNTER 2019-02-17 17:33 | Inpatient (IN) | payer MEDICAID ==
--- NOTE | 2019-02-17 18:15 | EDM.PDOC ---
ED HPI GENERAL MEDICAL PROBLEM - General Chief Complaint: General Stated Complaint: medical Time Seen by Provider: 02/17/19 18:21 Source of Information: Reports: Patient History Limitations: Reports: No Limitations - History of Present Illness INITIAL COMMENTS - FREE TEXT/NARRATIVE: pt has a red area on the rt ankle. This appears where she has been injecting with a needle. She has been spiking fevers and she has been hurting all over particularly her legs. Onset: Today, Other (pt got much worse tonight. ) Duration: Hour(s): Location: Reports: Generalized Associated Symptoms: Reports: Fever/Chills, Loss of Appetite, Nausea/Vomiting - Related Data Allergies Allergy/AdvReac Type Severity Reaction Status Date / Time No Known Allergies Allergy Verified 02/17/19 17:36 Home Meds: Home Meds NK [No Known Home Meds] 02/16/19 [History] Past Medical History Gastrointestinal History: Reports: Hemorrhoids Genitourinary History: Reports: UTI, Recurrent [employer] History: Reports: , Spontaneous Hematologic History: Reports: Anemia, Iron Deficiency - Infectious Disease History Infectious Disease History: Reports: Chicken Pox - Past Surgical History Head Surgeries/Procedures: Reports: None GI Surgical History: Reports: None Female Surgical History: Reports: None Social & Family History - Family History Family Medical History: Noncontributory - Tobacco Use Smoking Status *Q: Current Every Day Smoker Years of Tobacco use: 5 Packs/Tins Daily: 0.5 - Caffeine Use Caffeine Use: Reports: Coffee, Soda - Recreational Drug Use Recreational Drug Use: No ED ROS GENERAL - Review of Systems Review Of Systems: See Below Constitutional: Reports: Chills, Fatigue HEENT: Reports: Other (pt has painful teeth) Respiratory: Reports: No Symptoms Cardiovascular: Reports: No Symptoms Endocrine: Reports: No Symptoms GI/Abdominal: Reports: Nausea, Vomiting : Reports: No Symptoms Musculoskeletal: Reports: No Symptoms Skin: Reports: No Symptoms ED EXAM, GENERAL - Physical Exam Exam: See Below Free Text/Narrative:: p has a fever and chills. She hurts all over. She is a known Iv drug user. She has attempted to inject her ankle and she now looks like she has an infection. Exam Limited By: No Limitations General Appearance: Alert, Anxious, Moderate Distress, Other (pupils equal and reactive. ) Ears: Normal TMs Nose: Normal Inspection Throat/Mouth: Normal Inspection Head: Atraumatic Neck: Normal Inspection Respiratory/Chest: No Respiratory Distress Cardiovascular: Regular Rate, Rhythm GI/Abdominal: Soft, Non-Tender (Female) Exam: Deferred Rectal (Female) Exam: Deferred Back Exam: Other (pt has been having some back pain. ) Extremities: Other (pt has a area of redness on the ankle where it appears she has been injecting. She has multiple track alas on the arms. She had fluids started and she was given rocephen 1 gm iv. She did have blood cultures drawn. She had a Us of the leg which was neg for dvt. ) Neurological: Alert, Oriented, Normal Cognition Course - Vital Signs Last Recorded V/S: Last Vital Signs Temp 37.3 C 02/17/19 17:46 Pulse 107 H 02/17/19 17:46 Resp 16 02/17/19 17:46 BP 105/63 02/17/19 17:46 Pulse Ox 98 02/17/19 17:46 - Orders/Labs/Meds Orders: Active Orders 24 hr Category Date Time Status CULTURE BLOOD [BC] Urgent Lab 02/17/19 18:30 Received CULTURE BLOOD [BC] Urgent Lab 02/17/19 18:35 Received CULTURE URINE [RM] Stat Lab 02/17/19 19:40 Received Sodium Chloride 0.9% [Normal Saline] 1,000 ml Med 02/17/19 19:15 Active IV ASDIRECTED Sodium Chloride 0.9% [Normal Saline] 1,000 ml Med 02/17/19 19:45 Active IV ASDIRECTED Blood Culture x2 Reflex Set [OM.PC] Urgent Oth 02/17/19 19:11 Ordered Medication Orders Sodium Chloride (Normal Saline) 1,000 mls @ 999 mls/hr IV ASDIRECTED GINETTE Last Admin: 02/17/19 18:23 Dose: 999 mls/hr Sodium Chloride (Normal Saline) 1,000 mls @ 999 mls/hr IV ASDIRECTED GINETTE Last Admin: 02/17/19 19:55 Dose: 999 mls/hr Labs: Laboratory Tests 02/17/19 02/17/19 02/17/19 Range/Units 18:21 18:21 18:30 WBC 28.0 H (4.5-11.0) K/uL RBC 4.21 (3.30-5.50) M/uL Hgb 12.3 D (12.0-15.0) g/dL Hct 36.4 (36.0-48.0) % MCV 87 (80-98) fL MCH 29 (27-31) pg MCHC 34 (32-36) % Plt Count 235 (150-400) K/uL Add Manual Diff Yes Neutrophils % (Manual) 82 H (36-66) % Band Neutrophils % 11 (5-11) % Lymphocytes % (Manual) 4 L (24-44) % Monocytes % (Manual) 3 (2-6) % Sodium 133 L (140-148) mmol/L Potassium 3.9 (3.6-5.2) mmol/L Chloride 97 L (100-108) mmol/L Carbon Dioxide 24 (21-32) mmol/L Anion Gap 15.9 H (5.0-14.0) mmol/L BUN 44 H (7-18) mg/dL Creatinine 2.2 H (0.6-1.0) mg/dL Est Cr Clr Drug Dosing 28.21 mL/min Estimated GFR (MDRD) 26 L (>60) Glucose 119 H (74-106) mg/dL Lactic Acid 1.6 (0.4-2.0) mmol/L Calcium 8.1 L (8.5-10.1) mg/dL Total Bilirubin 0.4 (0.2-1.0) mg/dL AST 31 (15-37) U/L ALT 23 (12-78) U/L Alkaline Phosphatase 120 H (46-116) U/L Total Protein 7.8 (6.4-8.2) g/dL Albumin 2.8 L (3.4-5.0) g/dL Globulin 5.0 H (2.3-3.5) g/dL Albumin/Globulin Ratio 0.6 L (1.2-2.2) Amylase (25-115) U/L Lipase (73-393) U/L Urine Color (YELLOW) Urine Appearance (CLEAR) Urine pH (5.0-8.0) Ur Specific [place] (1.008-1.030) Urine Protein (NEGATIVE) mg/dL Urine Glucose (UA) (NEGATIVE) mg/dL Urine Ketones (NEGATIVE) mg/dL Urine Occult Blood (NEGATIVE) Urine Nitrite (NEGATIVE) Urine Bilirubin (NEGATIVE) Urine Urobilinogen (0.2-1.0) EU/dL Ur Leukocyte Esterase (NEGATIVE) Urine RBC (0-5) Urine WBC (0-5) Ur Epithelial Cells Amorphous Sediment Urine Bacteria Urine Mucus Urine Opiates Screen (NEGATIVE) Ur Oxycodone Screen (NEGATIVE) Urine Methadone Screen (NEGATIVE) Ur Propoxyphene Screen (NEGATIVE) Ur Barbiturates Screen (NEGATIVE) Ur Tricyclics Screen (NEGATIVE) Ur Phencyclidine Scrn (NEGATIVE) Ur Amphetamine Screen (NEGATIVE) U Methamphetamines Scrn (NEGATIVE) Urine MDMA Screen (NEGATIVE) U Benzodiazepines Scrn (NEGATIVE) U Cocaine Metab Screen (NEGATIVE) U Marijuana (THC) Screen (NEGATIVE) 02/17/19 02/17/19 02/17/19 Range/Units 18:41 19:40 20:04 WBC (4.5-11.0) K/uL RBC (3.30-5.50) M/uL Hgb (12.0-15.0) g/dL Hct (36.0-48.0) % MCV (80-98) fL MCH (27-31) pg MCHC (32-36) % Plt Count (150-400) K/uL Add Manual Diff Neutrophils % (Manual) (36-66) % Band Neutrophils % (5-11) % Lymphocytes % (Manual) (24-44) % Monocytes % (Manual) (2-6) % Sodium (140-148) mmol/L Potassium (3.6-5.2) mmol/L Chloride (100-108) mmol/L Carbon Dioxide (21-32) mmol/L Anion Gap (5.0-14.0) mmol/L BUN (7-18) mg/dL Creatinine (0.6-1.0) mg/dL Est Cr Clr Drug Dosing mL/min Estimated GFR (MDRD) (>60) Glucose (74-106) mg/dL Lactic Acid (0.4-2.0) mmol/L Calcium (8.5-10.1) mg/dL Total Bilirubin (0.2-1.0) mg/dL AST (15-37) U/L ALT (12-78) U/L Alkaline Phosphatase (46-116) U/L Total Protein (6.4-8.2) g/dL Albumin (3.4-5.0) g/dL Globulin (2.3-3.5) g/dL Albumin/Globulin Ratio (1.2-2.2) Amylase 11 L (25-115) U/L Lipase 25 L (73-393) U/L Urine Color Lyman A (YELLOW) Urine Appearance Clear (CLEAR) Urine pH 5.5 (5.0-8.0) Ur Specific [place] 1.025 (1.008-1.030) Urine Protein 100 H (NEGATIVE) mg/dL Urine Glucose (UA) Negative (NEGATIVE) mg/dL Urine Ketones Negative (NEGATIVE) mg/dL Urine Occult Blood Moderate H (NEGATIVE) Urine Nitrite Negative (NEGATIVE) Urine Bilirubin Negative (NEGATIVE) Urine Urobilinogen 1.0 (0.2-1.0) EU/dL Ur Leukocyte Esterase Trace H (NEGATIVE) Urine RBC 10-20 H (0-5) Urine WBC 10-20 H (0-5) Ur Epithelial Cells Many Amorphous Sediment Many Urine Bacteria Not seen Urine Mucus Rare Urine Opiates Screen Presumptive positive H (NEGATIVE) Ur Oxycodone Screen Negative (NEGATIVE) Urine Methadone Screen Negative (NEGATIVE) Ur Propoxyphene Screen Negative (NEGATIVE) Ur Barbiturates Screen Negative (NEGATIVE) Ur Tricyclics Screen Negative (NEGATIVE) Ur Phencyclidine Scrn Negative (NEGATIVE) Ur Amphetamine Screen Presumptive positive H (NEGATIVE) U Methamphetamines Scrn Presumptive positive H (NEGATIVE) Urine MDMA Screen Negative (NEGATIVE) U Benzodiazepines Scrn Negative (NEGATIVE) U Cocaine Metab Screen Negative (NEGATIVE) U Marijuana (THC) Screen Negative (NEGATIVE) Meds: Medications Generic Name Dose Route Start Last Admin Trade Name Freq PRN Reason Stop Dose Admin Sodium Chloride 1,000 mls @ 999 mls/hr 02/17/19 19:15 02/17/19 18:23 Normal Saline IV 999 mls/hr ASDIRECTED GINETTE Administration Sodium Chloride 1,000 mls @ 999 mls/hr 02/17/19 19:45 02/17/19 19:55 Normal Saline IV 999 mls/hr ASDIRECTED GINETTE Administration Discontinued Medications Generic Name Dose Route Start Last Admin Trade Name Freq PRN Reason Stop Dose Admin Ceftriaxone Sodium 1 gm/ 50 mls @ 100 mls/hr 02/17/19 19:12 02/17/19 19:23 Sodium Chloride IV 02/17/19 19:41 100 mls/hr ONETIME ONE Administration - Re-Assessments/Exams Free Text/Narrative Re-Assessment/Exam: 02/17/19 20:44 pt was given fluids and rocephen,. She had a 28,000 wbc her lactic acid is not real high. Departure - Departure Time of Disposition: 19:56 Disposition: Admitted As Inpatient 64 Condition: Fair Clinical Impression: Sepsis - Discharge Information Referrals: PCP,None [Primary Care Provider] - Forms: ED Department Discharge Care Plan Goals: admit to [facility] - My Orders Last 24 Hours: My Active Orders 02/17/19 18:30 CULTURE BLOOD [BC] Urgent 02/17/19 18:35 CULTURE BLOOD [BC] Urgent 02/17/19 19:11 Blood Culture x2 Reflex Set [OM.PC] Urgent 02/17/19 19:15 Sodium Chloride 0.9% [Normal Saline] 1,000 ml IV ASDIRECTED 02/17/19 19:40 CULTURE URINE [RM] Stat 02/17/19 19:45 Sodium Chloride 0.9% [Normal Saline] 1,000 ml IV ASDIRECTED - Assessment/Plan Last 24 Hours: My Active Orders 02/17/19 18:30 CULTURE BLOOD [BC] Urgent 02/17/19 18:35 CULTURE BLOOD [BC] Urgent 02/17/19 19:11 Blood Culture x2 Reflex Set [OM.PC] Urgent 02/17/19 19:15 Sodium Chloride 0.9% [Normal Saline] 1,000 ml IV ASDIRECTED 02/17/19 19:40 CULTURE URINE [RM] Stat 02/17/19 19:45 Sodium Chloride 0.9% [Normal Saline] 1,000 ml IV ASDIRECTED
[2019-02-17] MEDS ORDERED: cefTRIAXone 1 GM in Sodium Chloride 0.9% 50 ML IV ONE (19:12)
[2019-02-17] MEDS ORDERED: Sodium Chloride 0.9% 1,000 ML IV SCH ×2 (19:15→19:45)
--- NOTE | 2019-02-17 19:57 | CRLUS ---
INDICATION: Right thigh and calf tenderness TECHNIQUE: Ultrasound venous duplex lower right extremity. Compression venous exam was performed using henning-scale, color Doppler, and spectral Doppler imaging. COMPARISON: None FINDINGS: Sonographic imaging demonstrates the right common femoral, deep femoral, superficial femoral, popliteal, posterior tibial and greater saphenous and the contralateral left common femoral veins to be fully compressible with normal color Doppler blood flow. IMPRESSION: Normal right lower extremity venous ultrasound, no sign of deep venous thrombosis. Dictated by Belgica Prince MD @ Feb 17 2019 7:54PM Signed by Dr. Belgica Prince @ Feb 17 2019 7:55PM
[2019-02-17] MEDS ORDERED: Acetaminophen/HYDROcodone 325-5 MG Tab PO ONE (20:56)
[2019-02-17] MEDS ORDERED: Acetaminophen 325 MG Tab PO ONE (20:56)
[2019-02-17] MEDS: Sodium Chloride 0.9% 1,000 ML IV SCH (20:57)
[2019-02-17] MEDS ORDERED: Vancomycin 1 GM SDV IV SCH ×2 (21:00→23:45)
[2019-02-17] MEDS ORDERED: Meropenem 1 GM in Sodium Chloride 0.9% 100 ML IV SCH (21:00)
[2019-02-17] MEDS ORDERED: Docusate Sodium 100 MG Cap PO PRN (21:27)
[2019-02-17] MEDS ORDERED: Albuterol 0.083% 2.5 MG/3 ML Neb Soln NEB PRN (21:27)
[2019-02-17] MEDS ORDERED: Morphine 2 MG/ML Syringe IVPUSH PRN (21:27)
[2019-02-17] MEDS ORDERED: Temazepam 15 MG Cap PO PRN (21:27)
[2019-02-17] MEDS ORDERED: Ondansetron 4 MG Tab.DIS PO PRN (21:27)
[2019-02-17] MEDS ORDERED: Ondansetron 4 MG/2 ML SDV IV PRN (21:27)
[2019-02-17] MEDS ORDERED: LORazepam 2 MG/ML SDV IV PRN (21:27)
--- NOTE | 2019-02-17 22:01 | CRLCT ---
Indication: Evaluate for possible ankle lesion Technique: Routine noncontrast CT right ankle Please note that all CT scans at this facility use dose modulation, iterative reconstruction, and/or weight-based dosing when appropriate to reduce radiation dose to as low as reasonably achievable. Comparison: No comparison Findings: There is a chronic ossicle adjacent to the tip the lateral malleolus at the anterior aspect measuring 3 millimeters, representing sequela prior trauma. There is no acute fracture. No osteochondral defect of the talar dome. No arthropathy. No soft tissue mass. No synovitis. Alignment normal. There is no intraosseous lesion. No periostitis or cortical destruction. Normal trabecular pattern with normal trabecular markings extending to the subtalar joint. Impression: No intraosseous lesion. Sequela of old trauma to the anterior distal fibula, possibly representing injury to the anterior talofibular ligament. No acute fracture or osteochondral defect. No destructive osseous lesion. Please note that all CT scans at this facility use dose modulation, iterative reconstruction, and/or weight-based dosing when appropriate to reduce radiation dose to as low as reasonably achievable. Dictated by Rg Frey MD @ Feb 17 2019 9:56PM Signed by Dr. Rg Frey @ Feb 17 2019 10:01PM
--- NOTE | 2019-02-17 22:44 | PCM.HP.2 ---
H&P History of Present Illness - General Date of Service: 02/17/19 Admit Problem/Dx: Admission Diagnosis/Problem Admission Diagnosis/Problem Cellulitis of right ankle Source of Information: Patient History Limitations: Reports: No Limitations - History of Present Illness Initial Comments - Free Text/Narative: chief complaint: right ankle pain This is a 28 year old female presents to ER with Boyfriend. Ms. Forrester reports has been wearing boots without the proper socks, had a sore on her ankle about one week ago, the sore formed a blister then popped about two days ago, reports a lot of pus came out, but two days ago had pain with walking, now the ankle is constant pain at ulcer area radiated up the leg and groin. having fever, chills , nausea, vomiting, body aches and headache today. 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 last used 2 days ago. when question by Doctor "may have injected" into her ankle. Injection sites noted at AC Onset of Symptoms: Reports: Gradual Duration of Symptoms: Reports: Day(s): (2 days of painful walking, wound drainage), Week(s): (one week of blister), Getting Worse (fever, chills, body aches, nausea, vomiting) Location: Reports: Lower Extremity, Right Quality: Reports: Ache, Throbbing Improves with: Reports: Rest Worsens with: Reports: None Context: Reports: Other (current IV drug use Meth and Heroin) Associated Symptoms: Reports: Fever/Chills, Headaches, Loss of Appetite, Nausea/ Vomiting - Related Data Allergies/Adverse Reactions: Allergies Allergy/AdvReac Type Severity Reaction Status Date / Time No Known Allergies Allergy Verified 02/17/19 17:36 Home Medications: Home Meds NK [No Known Home Meds] 02/16/19 [History] Past Medical History Gastrointestinal History: Reports: Hemorrhoids Genitourinary History: Reports: UTI, Recurrent [employer] History: Reports: , Spontaneous Hematologic History: Reports: Anemia, Iron Deficiency - Infectious Disease History Infectious Disease History: Reports: Chicken Pox - Past Surgical History Head Surgeries/Procedures: Reports: None GI Surgical History: Reports: None Female Surgical History: Reports: None Social & Family History - Family History Family Medical History: Noncontributory - Tobacco Use Smoking Status *Q: Current Every Day Smoker Years of Tobacco use: 3 Packs/Tins Daily: 0 Tobacco Use Comment: 5 cigarettes per day Second Hand Smoke Exposure: Yes - Caffeine Use Caffeine Use: Reports: Coffee - Recreational Drug Use Recreational Drug Use: Yes Drug Use in Last 12 Months: Yes Recreational Drug Type: Reports: Heroin, Methamphetamine Other Recreational Drug Type: 'few days ago' last use Recreational Drug Use Frequency: Rarely Recreational Drug Last Use: t-3 H&P Review of Systems - Review of Systems: Review Of Systems: See Below General: Reports: Fever, Chills, Malaise, Decreased Appetite HEENT: Reports: Headaches Pulmonary: Reports: No Symptoms Cardiovascular: Reports: No Symptoms Gastrointestinal: Reports: Nausea, Vomiting Genitourinary: Reports: No Symptoms Musculoskeletal: Reports: Joint Pain (right ankle), Muscle Pain Skin: Reports: Wound Psychiatric: Reports: No Symptoms Neurological: Reports: No Symptoms Hematologic/Lymphatic: Reports: No Symptoms Immunologic: Reports: No Symptoms Exam - Exam Exam: See Below - Vital Signs Vital Signs: Last Vital Signs Temp 37.3 C 02/17/19 17:46 Pulse 107 H 02/17/19 17:46 Resp 16 02/17/19 17:46 BP 105/63 02/17/19 17:46 Pulse Ox 98 02/17/19 17:46 Weight: 56.245 kg - Exam Quality Assessment: DVT Prophylaxis, Skin Breakdown General: Alert, Oriented, Cooperative, Mild Distress HEENT: PERRLA, Conjunctiva Clear, EACs Clear, EOMI, Hearing Intact, Mucosa Moist & [place], Nares Patent, Other (teeth in poor continue multi missing teeth, front teeth with severe decay) Neck: Supple, Trachea Midline Lungs: Clear to Auscultation, Normal Respiratory Effort Cardiovascular: Regular Rhythm, Normal S1, Normal S2, Tachycardia GI/Abdominal Exam: Normal Bowel Sounds, Soft, Non-Tender (Female) Exam: Deferred Rectal (Female) Exam: Deferred Back Exam: Normal Inspection, Full Range of Motion Extremities: Redness (right ankle), Other (circular ulcer with scant discharge to medial ankle right) Peripheral Pulses: 2+: Radial (L), Radial (R), Dorsalis Pedis (L), Dorsalis Pedis (R) Skin: Warm, Dry, Intact Neurological: Reflexes Equal Bilateral, Strength Equal Bilateral, Normal Speech , Normal Tone Neuro Extensive - Mental Status: Alert, Oriented x3, Normal Mood/Affect Psychiatric: Alert, Normal Affect, Normal Mood - Patient Data Lab Results Last 24 hrs: Laboratory Results - last 24 hr 02/17/19 02/17/19 02/17/19 Range/Units 18:21 18:21 18:30 WBC 28.0 H (4.5-11.0) K/uL RBC 4.21 (3.30-5.50) M/uL Hgb 12.3 D (12.0-15.0) g/dL Hct 36.4 (36.0-48.0) % MCV 87 (80-98) fL MCH 29 (27-31) pg MCHC 34 (32-36) % Plt Count 235 (150-400) K/uL Add Manual Diff Yes Neutrophils % (Manual) 82 H (36-66) % Band Neutrophils % 11 (5-11) % Lymphocytes % (Manual) 4 L (24-44) % Monocytes % (Manual) 3 (2-6) % Sodium 133 L (140-148) mmol/L Potassium 3.9 (3.6-5.2) mmol/L Chloride 97 L (100-108) mmol/L Carbon Dioxide 24 (21-32) mmol/L Anion Gap 15.9 H (5.0-14.0) mmol/L BUN 44 H (7-18) mg/dL Creatinine 2.2 H (0.6-1.0) mg/dL Est Cr Clr Drug Dosing 28.21 mL/min Estimated GFR (MDRD) 26 L (>60) Glucose 119 H (74-106) mg/dL Lactic Acid 1.6 (0.4-2.0) mmol/L Calcium 8.1 L (8.5-10.1) mg/dL Total Bilirubin 0.4 (0.2-1.0) mg/dL AST 31 (15-37) U/L ALT 23 (12-78) U/L Alkaline Phosphatase 120 H (46-116) U/L C-Reactive Protein (0.0-0.3) mg/dL Total Protein 7.8 (6.4-8.2) g/dL Albumin 2.8 L (3.4-5.0) g/dL Globulin 5.0 H (2.3-3.5) g/dL Albumin/Globulin Ratio 0.6 L (1.2-2.2) Amylase (25-115) U/L Lipase (73-393) U/L Urine Color (YELLOW) Urine Appearance (CLEAR) Urine pH (5.0-8.0) Ur Specific [place] (1.008-1.030) Urine Protein (NEGATIVE) mg/dL Urine Glucose (UA) (NEGATIVE) mg/dL Urine Ketones (NEGATIVE) mg/dL Urine Occult Blood (NEGATIVE) Urine Nitrite (NEGATIVE) Urine Bilirubin (NEGATIVE) Urine Urobilinogen (0.2-1.0) EU/dL Ur Leukocyte Esterase (NEGATIVE) Urine RBC (0-5) Urine WBC (0-5) Ur Epithelial Cells Amorphous Sediment Urine Bacteria Urine Mucus Urine Opiates Screen (NEGATIVE) Ur Oxycodone Screen (NEGATIVE) Urine Methadone Screen (NEGATIVE) Ur Propoxyphene Screen (NEGATIVE) Ur Barbiturates Screen (NEGATIVE) Ur Tricyclics Screen (NEGATIVE) Ur Phencyclidine Scrn (NEGATIVE) Ur Amphetamine Screen (NEGATIVE) U Methamphetamines Scrn (NEGATIVE) Urine MDMA Screen (NEGATIVE) U Benzodiazepines Scrn (NEGATIVE) U Cocaine Metab Screen (NEGATIVE) U Marijuana (THC) Screen (NEGATIVE) 02/17/19 02/17/19 02/17/19 Range/Units 18:41 19:40 20:04 WBC (4.5-11.0) K/uL RBC (3.30-5.50) M/uL Hgb (12.0-15.0) g/dL Hct (36.0-48.0) % MCV (80-98) fL MCH (27-31) pg MCHC (32-36) % Plt Count (150-400) K/uL Add Manual Diff Neutrophils % (Manual) (36-66) % Band Neutrophils % (5-11) % Lymphocytes % (Manual) (24-44) % Monocytes % (Manual) (2-6) % Sodium (140-148) mmol/L Potassium (3.6-5.2) mmol/L Chloride (100-108) mmol/L Carbon Dioxide (21-32) mmol/L Anion Gap (5.0-14.0) mmol/L BUN (7-18) mg/dL Creatinine (0.6-1.0) mg/dL Est Cr Clr Drug Dosing mL/min Estimated GFR (MDRD) (>60) Glucose (74-106) mg/dL Lactic Acid (0.4-2.0) mmol/L Calcium (8.5-10.1) mg/dL Total Bilirubin (0.2-1.0) mg/dL AST (15-37) U/L ALT (12-78) U/L Alkaline Phosphatase (46-116) U/L C-Reactive Protein (0.0-0.3) mg/dL Total Protein (6.4-8.2) g/dL Albumin (3.4-5.0) g/dL Globulin (2.3-3.5) g/dL Albumin/Globulin Ratio (1.2-2.2) Amylase 11 L (25-115) U/L Lipase 25 L (73-393) U/L Urine Color [place] A (YELLOW) Urine Appearance Clear (CLEAR) Urine pH 5.5 (5.0-8.0) Ur Specific [place] 1.025 (1.008-1.030) Urine Protein 100 H (NEGATIVE) mg/dL Urine Glucose (UA) Negative (NEGATIVE) mg/dL Urine Ketones Negative (NEGATIVE) mg/dL Urine Occult Blood Moderate H (NEGATIVE) Urine Nitrite Negative (NEGATIVE) Urine Bilirubin Negative (NEGATIVE) Urine Urobilinogen 1.0 (0.2-1.0) EU/dL Ur Leukocyte Esterase Trace H (NEGATIVE) Urine RBC 10-20 H (0-5) Urine WBC 10-20 H (0-5) Ur Epithelial Cells Many Amorphous Sediment Many Urine Bacteria Not seen Urine Mucus Rare Urine Opiates Screen Presumptive positive H (NEGATIVE) Ur Oxycodone Screen Negative (NEGATIVE) Urine Methadone Screen Negative (NEGATIVE) Ur Propoxyphene Screen Negative (NEGATIVE) Ur Barbiturates Screen Negative (NEGATIVE) Ur Tricyclics Screen Negative (NEGATIVE) Ur Phencyclidine Scrn Negative (NEGATIVE) Ur Amphetamine Screen Presumptive positive H (NEGATIVE) U Methamphetamines Scrn Presumptive positive H (NEGATIVE) Urine MDMA Screen Negative (NEGATIVE) U Benzodiazepines Scrn Negative (NEGATIVE) U Cocaine Metab Screen Negative (NEGATIVE) U Marijuana (THC) Screen Negative (NEGATIVE) 02/17/19 Range/Units 21:27 WBC (4.5-11.0) K/uL RBC (3.30-5.50) M/uL Hgb (12.0-15.0) g/dL Hct (36.0-48.0) % MCV (80-98) fL MCH (27-31) pg MCHC (32-36) % Plt Count (150-400) K/uL Add Manual Diff Neutrophils % (Manual) (36-66) % Band Neutrophils % (5-11) % Lymphocytes % (Manual) (24-44) % Monocytes % (Manual) (2-6) % Sodium (140-148) mmol/L Potassium (3.6-5.2) mmol/L Chloride (100-108) mmol/L Carbon Dioxide (21-32) mmol/L Anion Gap (5.0-14.0) mmol/L BUN (7-18) mg/dL Creatinine (0.6-1.0) mg/dL Est Cr Clr Drug Dosing mL/min Estimated GFR (MDRD) (>60) Glucose (74-106) mg/dL Lactic Acid (0.4-2.0) mmol/L Calcium (8.5-10.1) mg/dL Total Bilirubin (0.2-1.0) mg/dL AST (15-37) U/L ALT (12-78) U/L Alkaline Phosphatase (46-116) U/L C-Reactive Protein 32.66 H (0.0-0.3) mg/dL Total Protein (6.4-8.2) g/dL Albumin (3.4-5.0) g/dL Globulin (2.3-3.5) g/dL Albumin/Globulin Ratio (1.2-2.2) Amylase (25-115) U/L Lipase (73-393) U/L Urine Color (YELLOW) Urine Appearance (CLEAR) Urine pH (5.0-8.0) Ur Specific [place] (1.008-1.030) Urine Protein (NEGATIVE) mg/dL Urine Glucose (UA) (NEGATIVE) mg/dL Urine Ketones (NEGATIVE) mg/dL Urine Occult Blood (NEGATIVE) Urine Nitrite (NEGATIVE) Urine Bilirubin (NEGATIVE) Urine Urobilinogen (0.2-1.0) EU/dL Ur Leukocyte Esterase (NEGATIVE) Urine RBC (0-5) Urine WBC (0-5) Ur Epithelial Cells Amorphous Sediment Urine Bacteria Urine Mucus Urine Opiates Screen (NEGATIVE) Ur Oxycodone Screen (NEGATIVE) Urine Methadone Screen (NEGATIVE) Ur Propoxyphene Screen (NEGATIVE) Ur Barbiturates Screen (NEGATIVE) Ur Tricyclics Screen (NEGATIVE) Ur Phencyclidine Scrn (NEGATIVE) Ur Amphetamine Screen (NEGATIVE) U Methamphetamines Scrn (NEGATIVE) Urine MDMA Screen (NEGATIVE) U Benzodiazepines Scrn (NEGATIVE) U Cocaine Metab Screen (NEGATIVE) U Marijuana (THC) Screen (NEGATIVE) Result Diagrams: 02/17/19 18:21 02/17/19 18:21 [place] Results Last 24 hrs: Microbiology 02/17/19 20:54 Gram Stain - Final Ankle, Right - Problem List (1) Cellulitis SNOMED Code(s): 002532647 ICD Code: L03.90 - CELLULITIS, UNSPECIFIED Status: Acute Priority: High Current Visit: Yes Qualifiers: Site of cellulitis: extremity Site of cellulitis of extremity: lower extremity Laterality: right Qualified Code(s): L03.115 - Cellulitis of right lower limb (2) IVDU (intravenous drug user) SNOMED Code(s): 544938338 ICD Code: F19.90 - OTHER PSYCHOACTIVE SUBSTANCE USE, UNSPECIFIED, UNCOMPLICATED Status: Acute Priority: High Current Visit: Yes (3) Tobacco dependence SNOMED Code(s): 07673484 ICD Code: F17.200 - NICOTINE DEPENDENCE, UNSPECIFIED, UNCOMPLICATED Status : Acute Priority: High Current Visit: Yes (4) Urinary tract infection SNOMED Code(s): 15735278 ICD Code: N39.0 - URINARY TRACT INFECTION, SITE NOT SPECIFIED Status: Acute Priority: High Current Visit: Yes Qualifiers: Urinary tract infection type: site unspecified Hematuria presence: with hematuria Qualified Code(s): N39.0 - Urinary tract infection, site not specified; R31.9 - Hematuria, unspecified Problem List Initiated/Reviewed/Updated: Yes Orders Last 24hrs: Active Orders 24 hr Category Date Time Status Bedrest Bathroom Privileges [RC] ASDIRECTED Care 02/17/19 21:27 Active Cardiac Monitoring [RC] .As Directed Care 02/17/19 21:27 Active Dressing Change [Wound Care] [RC] DAILY Care 02/17/19 21:06 Active Intake and Output [RC] QSHIFT Care 02/17/19 21:27 Active May Shower [RC] ASDIRECTED Care 02/17/19 21:27 Active Notify Provider Vital Signs [RC] ASDIRECTED Care 02/17/19 21:27 Active Oxygen Therapy [RC] PRN Care 02/17/19 21:27 Active Pulse Oximetry [RC] PRN Care 02/17/19 21:27 Active RT Aerosol Therapy [RC] ASDIRECTED Care 02/17/19 21:27 Active VTE/DVT Education [RC] Per Unit Routine Care 02/17/19 21:27 Active Vital Signs [RC] Q4H Care 02/17/19 21:27 Active Regular Diet [DIET] Diet 02/17/19 Breakfast Active CBC WITH AUTO DIFF [HEME] AM Lab 02/18/19 05:11 Ordered COMPREHENSIVE METABOLIC PN,CMP [CHEM] AM Lab 02/18/19 05:11 Ordered CULTURE BLOOD [BC] Urgent Lab 02/17/19 18:30 Received CULTURE BLOOD [BC] Urgent Lab 02/17/19 18:35 Received CULTURE URINE [RM] Stat Lab 02/17/19 19:40 Received CULTURE WOUND + SMEAR [RM] Stat Lab 02/17/19 20:54 Results HEPATITIS B SURF AB QUANT Urgent Lab 02/17/19 22:13 Ordered HEPATITIS PANEL (4) Urgent Lab 02/17/19 22:12 Ordered HIV RAPID SCREEN RLFX COMFIRM [CHEM] Routine Lab 02/17/19 22:12 Ordered LACTIC ACID [CHEM] Routine Lab 02/17/19 23:00 Ordered Acetaminophen/HYDROcodone [Sunflower 325-5 MG] Med 02/17/19 21:27 Active 1 tab PO Q4H PRN Albuterol [Proventil Neb Soln] Med 02/17/19 21:27 Active 2.5 mg NEB Q4H PRN Bacitracin [Bacitracin Oint] Med 02/17/19 21:45 Active See Dose Instructions TOP DAILY Bisacodyl [Dulcolax] Med 02/17/19 21:27 Active 5 mg PO DAILY PRN Docusate Sodium [Colace] Med 02/17/19 21:27 Active 100 mg PO BID PRN Enoxaparin [Lovenox] Med 02/18/19 09:00 Active 30 mg SUBCUT DAILY LORazepam [Ativan] Med 02/17/19 21:27 Active 1 mg IV Q6H PRN Meropenem [Merrem] 500 mg Med 02/18/19 05:00 Active Sodium Chloride 0.9% [Normal Saline] 50 ml IV Q8H Morphine Med 02/17/19 21:27 Active 2 mg IVPUSH Q2H PRN Ondansetron [Zofran ODT] Med 02/17/19 21:27 Active 4 mg PO Q6H PRN Ondansetron [Zofran] Med 02/17/19 21:27 Active 4 mg IV Q4H PRN Sodium Chloride 0.9% [Normal Saline] 1,000 ml Med 02/17/19 21:00 Active IV ASDIRECTED Temazepam [Restoril] Med 02/17/19 21:27 Active 15 mg PO BEDTIME PRN Vancomycin Med 02/17/19 21:00 Active See Dose Instructions IV .PHARMACY TO DOSE Vancomycin 0.75 gm Med 02/18/19 22:00 Active Sodium Chloride 0.9% [Normal Saline] 250 ml IV Q24H Vancomycin 1 gm Med 02/17/19 22:00 Active Sodium Chloride 0.9% [Normal Saline] 250 ml IV ONETIME Blood Culture x2 Reflex Set [OM.PC] Urgent Oth 02/17/19 19:11 Ordered Resuscitation Status Routine Resus Stat 02/17/19 21:02 Ordered Medication Orders Hydrocodone Bitart/Acetaminophen (Sunflower 325-5 Mg) 1 tab PO Q4H PRN PRN Reason: Pain (moderate 4-6) Albuterol (Proventil Neb Soln) 2.5 mg NEB Q4H PRN PRN Reason: Shortness Of Breath/wheezing Bacitracin (Bacitracin Oint) 0 gm TOP DAILY GINETTE Bisacodyl (Dulcolax) 5 mg PO DAILY PRN PRN Reason: Constipation Docusate Sodium (Colace) 100 mg PO BID PRN PRN Reason: Constipation Enoxaparin Sodium (Lovenox) 30 mg SUBCUT DAILY [facility] Sodium Chloride (Normal Saline) 1,000 mls @ 125 mls/hr IV ASDIRECTED GINETTE Last Admin: 02/17/19 20:57 Dose: 125 mls/hr Meropenem 500 mg/ Sodium (Chloride) 50 mls @ 100 mls/hr IV Q8H GINETTE Vancomycin HCl 1 gm/ Sodium (Chloride) 250 mls @ 166.667 mls/hr IV ONETIME ONE Stop: 02/17/19 23:29 Vancomycin HCl 0.75 gm/ Sodium (Chloride) 250 mls @ 166.667 mls/hr IV Q24H GINETTE Lorazepam (Ativan) 1 mg IV Q6H PRN PRN Reason: Nausea/Vomiting Morphine Sulfate (Morphine) 2 mg IVPUSH Q2H PRN PRN Reason: Pain (severe 7-10) Ondansetron HCl (Zofran Odt) 4 mg PO Q6H PRN PRN Reason: Nausea able to take PO Ondansetron HCl (Zofran) 4 mg IV Q4H PRN PRN Reason: Nausea/Vomiting Temazepam (Restoril) 15 mg PO BEDTIME PRN PRN Reason: Sleep Vancomycin HCl (Vancomycin) 0 gm IV .PHARMACY TO DOSE GINETTE Assessment/Plan Comment:: ASSESSMENT AND PLAN - Cellulitis with early sepsis - WBC 37472, hgb 3.9, hct 36.4, plt 235, chemistries abnormal, urine positive blood, wbc 10-20, rbc 10-20, blood, lactic acid 1.6, liver function elevated, Urine drug screen positive meth and opiates but CT scan right ankle no intraosseous lesion. Evidence for sepsis including tachycardia, weakness and fever. Rocephin 1 gram given in ER, give 2 liter of normal saline in ER. -Antibiotic coverage with IV Vancomycin every 12 hours and IV Meropenem 1 gram every 8 hours. -telemetry -Supplement oxygen if needed -Follow-up cultures - urine, wound, blood -Repeat lactic acid at 2300 -Blood testing am CBC, CMP IV Drug use - Heroin every other day, Meth at least 2 times a week. Potential for chronic hepatitis such as hepatitis C exists. discussed with Ms. Usama katz [employer] for help with IVDU after discharge from the hospital. Monitor for Opiate withdrawal. -Hepatitis serologies -HIV Tobacco dependence - smokes about half pack a day. -Encourage cessation -decline nicotine patch Urinary Tract Infection -coverage with antibiotic -urine culture pending Maintenance issues - - DVT prophylaxis - enoxaparin - GI prophylaxis - PPI - Nutrition - regular - Guido catheter - not indicated CODE STATUS - full Admission justification - This patient will be admitted for inpatient services and is medically appropriate meeting medical necessity for inpatient admission as outlined in my documentation. I reasonably expect the patient will require inpatient services that span a period time over 2 midnights. I reasonably expect this patient to be discharged or transferred within 96 hours [facility]. Disposition - anticipate discharge home after the hospital stay Primary care physician - Ann Adorno, [facility] Hospitalist - Festus Whitehead M.D. - Mortality Measure Prognosis:: Good
[2019-02-17] MEDS ORDERED: Bacitracin Oint 1 GM U/D Packet ONE (23:03)
[2019-02-17] MEDS: Bacitracin Oint 28.35 GM Tube TOP SCH (23:04)
[2019-02-17] MEDS ORDERED: Bacitracin Oint 1 GM U/D Packet TOP ONE (23:07)
[2019-02-18] MEDS: Acetaminophen/HYDROcodone 325-5 MG Tab PO PRN ×4 (04:20→23:28)
[2019-02-18] MEDS ORDERED: Meropenem 500 MG in Sodium Chloride 0.9% 50 ML IV SCH (05:00)
[2019-02-18] MEDS ORDERED: Potassium Chloride 20 MEQ Tab.ER PO ONE ×2 (08:30→17:00)
[2019-02-18] MEDS: Bacitracin Oint 28.35 GM Tube TOP SCH (08:47)
[2019-02-18] MEDS ORDERED: Enoxaparin 30 MG/0.3 ML Syringe SUBCUT SCH (09:00)
[2019-02-18] MEDS ORDERED: Pantoprazole 40 MG Vial IVPUSH SCH (09:00)
[2019-02-18] MEDS ORDERED: FLU Vacc QS2019-20(6MOS+)/PF 60 MCG/0.5 ML SYRINGE IM ONE (10:00)
--- NOTE | 2019-02-18 11:26 | PCM.PN ---
- General Info Date of Service: 02/18/19 Subjective Update: Ms. Forrester is a 28-year-old woman who was admitted through the emergency department with sepsis secondary to cellulitis of her right ankle. She developed a sore on the lateral aspect of the ankle approximately one week ago which is progressively become worse and much more sore. She was felt to have early sepsis on initial evaluation in the emergency department. She received vigorous IV fluid replacement and is been started on broad-spectrum IV antibiotic therapy pending culture results. Ankle feels much better this morning. CT scan of the ankle showed no evidence of abscess or osteomyelitis. Functional Status: Reports: Tolerating Diet, Ambulating, Urinating - Review of Systems General: Reports: Weakness. Denies: Fever, Chills Pulmonary: Reports: No Symptoms Cardiovascular: Reports: No Symptoms Gastrointestinal: Reports: No Symptoms Skin: Reports: Other (Ulcer lateral aspect right ankle) - Patient Data Vitals - Most Recent: Last Vital Signs Temp 96.0 F 02/18/19 11:06 Pulse 68 02/18/19 11:06 Resp 18 02/18/19 11:06 BP 87/50 L 02/18/19 11:06 Pulse Ox 98 02/18/19 11:06 Weight - Most Recent: 124 lb I&O - Last 24 Hours: Intake & Output 02/17/19 02/18/19 02/18/19 22:59 06:59 14:59 Intake Total 250 3316 Output Total 1000 Balance 250 2316 Lab Results Last 24 Hours: Laboratory Results - last 24 hr 02/17/19 02/17/19 02/17/19 Range/Units 18:21 18:21 18:30 WBC 28.0 H (4.5-11.0) K/uL RBC 4.21 (3.30-5.50) M/uL Hgb 12.3 D (12.0-15.0) g/dL Hct 36.4 (36.0-48.0) % MCV 87 (80-98) fL MCH 29 (27-31) pg MCHC 34 (32-36) % Plt Count 235 (150-400) K/uL Neut % (Auto) (36-66) % Lymph % (Auto) (24-44) % Rhea % (Auto) (2-6) % Eos % (Auto) (2-4) % Baso % (Auto) (0-1) % Add Manual Diff Yes Neutrophils % (Manual) 82 H (36-66) % Band Neutrophils % 11 (5-11) % Lymphocytes % (Manual) 4 L (24-44) % Monocytes % (Manual) 3 (2-6) % Sodium 133 L (140-148) mmol/L Potassium 3.9 (3.6-5.2) mmol/L Chloride 97 L (100-108) mmol/L Carbon Dioxide 24 (21-32) mmol/L Anion Gap 15.9 H (5.0-14.0) mmol/L BUN 44 H (7-18) mg/dL Creatinine 2.2 H (0.6-1.0) mg/dL Est Cr Clr Drug Dosing 28.21 mL/min Estimated GFR (MDRD) 26 L (>60) Glucose 119 H (74-106) mg/dL Lactic Acid 1.6 (0.4-2.0) mmol/L Calcium 8.1 L (8.5-10.1) mg/dL Total Bilirubin 0.4 (0.2-1.0) mg/dL AST 31 (15-37) U/L ALT 23 (12-78) U/L Alkaline Phosphatase 120 H (46-116) U/L C-Reactive Protein (0.0-0.3) mg/dL Total Protein 7.8 (6.4-8.2) g/dL Albumin 2.8 L (3.4-5.0) g/dL Globulin 5.0 H (2.3-3.5) g/dL Albumin/Globulin Ratio 0.6 L (1.2-2.2) Amylase (25-115) U/L Lipase (73-393) U/L Urine Color (YELLOW) Urine Appearance (CLEAR) Urine pH (5.0-8.0) Ur Specific [place] (1.008-1.030) Urine Protein (NEGATIVE) mg/dL Urine Glucose (UA) (NEGATIVE) mg/dL Urine Ketones (NEGATIVE) mg/dL Urine Occult Blood (NEGATIVE) Urine Nitrite (NEGATIVE) Urine Bilirubin (NEGATIVE) Urine Urobilinogen (0.2-1.0) EU/dL Ur Leukocyte Esterase (NEGATIVE) Urine RBC (0-5) Urine WBC (0-5) Ur Epithelial Cells Amorphous Sediment Urine Bacteria Urine Mucus Urine HCG, Qual Urine Opiates Screen (NEGATIVE) Ur Oxycodone Screen (NEGATIVE) Urine Methadone Screen (NEGATIVE) Ur Propoxyphene Screen (NEGATIVE) Ur Barbiturates Screen (NEGATIVE) Ur Tricyclics Screen (NEGATIVE) Ur Phencyclidine Scrn (NEGATIVE) Ur Amphetamine Screen (NEGATIVE) U Methamphetamines Scrn (NEGATIVE) Urine MDMA Screen (NEGATIVE) U Benzodiazepines Scrn (NEGATIVE) U Cocaine Metab Screen (NEGATIVE) U Marijuana (THC) Screen (NEGATIVE) HIV-1 Ab Rapid Screen (NON-REACT.) 02/17/19 02/17/19 02/17/19 Range/Units 18:41 19:40 20:04 WBC (4.5-11.0) K/uL RBC (3.30-5.50) M/uL Hgb (12.0-15.0) g/dL Hct (36.0-48.0) % MCV (80-98) fL MCH (27-31) pg MCHC (32-36) % Plt Count (150-400) K/uL Neut % (Auto) (36-66) % Lymph % (Auto) (24-44) % Rhea % (Auto) (2-6) % Eos % (Auto) (2-4) % Baso % (Auto) (0-1) % Add Manual Diff Neutrophils % (Manual) (36-66) % Band Neutrophils % (5-11) % Lymphocytes % (Manual) (24-44) % Monocytes % (Manual) (2-6) % Sodium (140-148) mmol/L Potassium (3.6-5.2) mmol/L Chloride (100-108) mmol/L Carbon Dioxide (21-32) mmol/L Anion Gap (5.0-14.0) mmol/L BUN (7-18) mg/dL Creatinine (0.6-1.0) mg/dL Est Cr Clr Drug Dosing mL/min Estimated GFR (MDRD) (>60) Glucose (74-106) mg/dL Lactic Acid (0.4-2.0) mmol/L Calcium (8.5-10.1) mg/dL Total Bilirubin (0.2-1.0) mg/dL AST (15-37) U/L ALT (12-78) U/L Alkaline Phosphatase (46-116) U/L C-Reactive Protein (0.0-0.3) mg/dL Total Protein (6.4-8.2) g/dL Albumin (3.4-5.0) g/dL Globulin (2.3-3.5) g/dL Albumin/Globulin Ratio (1.2-2.2) Amylase 11 L (25-115) U/L Lipase 25 L (73-393) U/L Urine Color [place] A (YELLOW) Urine Appearance Clear (CLEAR) Urine pH 5.5 (5.0-8.0) Ur Specific [place] 1.025 (1.008-1.030) Urine Protein 100 H (NEGATIVE) mg/dL Urine Glucose (UA) Negative (NEGATIVE) mg/dL Urine Ketones Negative (NEGATIVE) mg/dL Urine Occult Blood Moderate H (NEGATIVE) Urine Nitrite Negative (NEGATIVE) Urine Bilirubin Negative (NEGATIVE) Urine Urobilinogen 1.0 (0.2-1.0) EU/dL Ur Leukocyte Esterase Trace H (NEGATIVE) Urine RBC 10-20 H (0-5) Urine WBC 10-20 H (0-5) Ur Epithelial Cells Many Amorphous Sediment Many Urine Bacteria Not seen Urine Mucus Rare Urine HCG, Qual Urine Opiates Screen Presumptive positive H (NEGATIVE) Ur Oxycodone Screen Negative (NEGATIVE) Urine Methadone Screen Negative (NEGATIVE) Ur Propoxyphene Screen Negative (NEGATIVE) Ur Barbiturates Screen Negative (NEGATIVE) Ur Tricyclics Screen Negative (NEGATIVE) Ur Phencyclidine Scrn Negative (NEGATIVE) Ur Amphetamine Screen Presumptive positive H (NEGATIVE) U Methamphetamines Scrn Presumptive positive H (NEGATIVE) Urine MDMA Screen Negative (NEGATIVE) U Benzodiazepines Scrn Negative (NEGATIVE) U Cocaine Metab Screen Negative (NEGATIVE) U Marijuana (THC) Screen Negative (NEGATIVE) HIV-1 Ab Rapid Screen (NON-REACT.) 02/17/19 02/17/19 02/17/19 Range/Units 21:27 22:12 23:05 WBC (4.5-11.0) K/uL RBC (3.30-5.50) M/uL Hgb (12.0-15.0) g/dL Hct (36.0-48.0) % MCV (80-98) fL MCH (27-31) pg MCHC (32-36) % Plt Count (150-400) K/uL Neut % (Auto) (36-66) % Lymph % (Auto) (24-44) % Rhea % (Auto) (2-6) % Eos % (Auto) (2-4) % Baso % (Auto) (0-1) % Add Manual Diff Neutrophils % (Manual) (36-66) % Band Neutrophils % (5-11) % Lymphocytes % (Manual) (24-44) % Monocytes % (Manual) (2-6) % Sodium (140-148) mmol/L Potassium (3.6-5.2) mmol/L Chloride (100-108) mmol/L Carbon Dioxide (21-32) mmol/L Anion Gap (5.0-14.0) mmol/L BUN (7-18) mg/dL Creatinine (0.6-1.0) mg/dL Est Cr Clr Drug Dosing mL/min Estimated GFR (MDRD) (>60) Glucose (74-106) mg/dL Lactic Acid 2.0 (0.4-2.0) mmol/L Calcium (8.5-10.1) mg/dL Total Bilirubin (0.2-1.0) mg/dL AST (15-37) U/L ALT (12-78) U/L Alkaline Phosphatase (46-116) U/L C-Reactive Protein 32.66 H (0.0-0.3) mg/dL Total Protein (6.4-8.2) g/dL Albumin (3.4-5.0) g/dL Globulin (2.3-3.5) g/dL Albumin/Globulin Ratio (1.2-2.2) Amylase (25-115) U/L Lipase (73-393) U/L Urine Color (YELLOW) Urine Appearance (CLEAR) Urine pH (5.0-8.0) Ur Specific [place] (1.008-1.030) Urine Protein (NEGATIVE) mg/dL Urine Glucose (UA) (NEGATIVE) mg/dL Urine Ketones (NEGATIVE) mg/dL Urine Occult Blood (NEGATIVE) Urine Nitrite (NEGATIVE) Urine Bilirubin (NEGATIVE) Urine Urobilinogen (0.2-1.0) EU/dL Ur Leukocyte Esterase (NEGATIVE) Urine RBC (0-5) Urine WBC (0-5) Ur Epithelial Cells Amorphous Sediment Urine Bacteria Urine Mucus Urine HCG, Qual Urine Opiates Screen (NEGATIVE) Ur Oxycodone Screen (NEGATIVE) Urine Methadone Screen (NEGATIVE) Ur Propoxyphene Screen (NEGATIVE) Ur Barbiturates Screen (NEGATIVE) Ur Tricyclics Screen (NEGATIVE) Ur Phencyclidine Scrn (NEGATIVE) Ur Amphetamine Screen (NEGATIVE) U Methamphetamines Scrn (NEGATIVE) Urine MDMA Screen (NEGATIVE) U Benzodiazepines Scrn (NEGATIVE) U Cocaine Metab Screen (NEGATIVE) U Marijuana (THC) Screen (NEGATIVE) HIV-1 Ab Rapid Screen Non-reactive (NON-REACT.) 02/17/19 02/18/19 02/18/19 Range/Units 23:11 05:08 05:08 WBC 19.7 H (4.5-11.0) K/uL RBC 3.72 (3.30-5.50) M/uL Hgb 10.7 L (12.0-15.0) g/dL Hct 32.7 L (36.0-48.0) % MCV 88 (80-98) fL MCH 29 (27-31) pg MCHC 33 (32-36) % Plt Count 219 (150-400) K/uL Neut % (Auto) 89 H (36-66) % Lymph % (Auto) 6 L (24-44) % Rhea % (Auto) 5 (2-6) % Eos % (Auto) 0 L (2-4) % Baso % (Auto) 0 (0-1) % Add Manual Diff Neutrophils % (Manual) (36-66) % Band Neutrophils % (5-11) % Lymphocytes % (Manual) (24-44) % Monocytes % (Manual) (2-6) % Sodium 136 L (140-148) mmol/L Potassium 3.5 L (3.6-5.2) mmol/L Chloride 104 (100-108) mmol/L Carbon Dioxide 25 (21-32) mmol/L Anion Gap 10.5 (5.0-14.0) mmol/L BUN 36 H (7-18) mg/dL Creatinine 1.7 H (0.6-1.0) mg/dL Est Cr Clr Drug Dosing 36.51 mL/min Estimated GFR (MDRD) 35 L (>60) Glucose 115 H (74-106) mg/dL Lactic Acid (0.4-2.0) mmol/L Calcium 7.2 L (8.5-10.1) mg/dL Total Bilirubin 0.3 (0.2-1.0) mg/dL AST 26 (15-37) U/L ALT 22 (12-78) U/L Alkaline Phosphatase 123 H (46-116) U/L C-Reactive Protein (0.0-0.3) mg/dL Total Protein 6.3 L (6.4-8.2) g/dL Albumin 2.1 L (3.4-5.0) g/dL Globulin 4.2 H (2.3-3.5) g/dL Albumin/Globulin Ratio 0.5 L (1.2-2.2) Amylase (25-115) U/L Lipase (73-393) U/L Urine Color (YELLOW) Urine Appearance (CLEAR) Urine pH (5.0-8.0) Ur Specific [place] (1.008-1.030) Urine Protein (NEGATIVE) mg/dL Urine Glucose (UA) (NEGATIVE) mg/dL Urine Ketones (NEGATIVE) mg/dL Urine Occult Blood (NEGATIVE) Urine Nitrite (NEGATIVE) Urine Bilirubin (NEGATIVE) Urine Urobilinogen (0.2-1.0) EU/dL Ur Leukocyte Esterase (NEGATIVE) Urine RBC (0-5) Urine WBC (0-5) Ur Epithelial Cells Amorphous Sediment Urine Bacteria Urine Mucus Urine HCG, Qual Negative Urine Opiates Screen (NEGATIVE) Ur Oxycodone Screen (NEGATIVE) Urine Methadone Screen (NEGATIVE) Ur Propoxyphene Screen (NEGATIVE) Ur Barbiturates Screen (NEGATIVE) Ur Tricyclics Screen (NEGATIVE) Ur Phencyclidine Scrn (NEGATIVE) Ur Amphetamine Screen (NEGATIVE) U Methamphetamines Scrn (NEGATIVE) Urine MDMA Screen (NEGATIVE) U Benzodiazepines Scrn (NEGATIVE) U Cocaine Metab Screen (NEGATIVE) U Marijuana (THC) Screen (NEGATIVE) HIV-1 Ab Rapid Screen (NON-REACT.) Sulaiman Results Last 24 Hours: Microbiology 02/17/19 20:54 Gram Stain - Final Ankle, Right Med Orders - Current: Current Medications Albuterol (Proventil Neb Soln) 2.5 mg NEB Q4H PRN PRN Reason: Shortness Of Breath/wheezing Bacitracin (Bacitracin Oint) 0 gm TOP DAILY [facility] Last Admin: 02/18/19 08:47 Dose: 1 applic Bisacodyl (Dulcolax) 5 mg PO DAILY PRN PRN Reason: Constipation Docusate Sodium (Colace) 100 mg PO BID PRN PRN Reason: Constipation Enoxaparin Sodium (Lovenox) 30 mg SUBCUT DAILY [facility] Last Admin: 02/18/19 08:48 Dose: 30 mg Sodium Chloride (Normal Saline) 1,000 mls @ 125 mls/hr IV ASDIRECTED [facility] Last Admin: 02/17/19 20:57 Dose: 125 mls/hr Meropenem 500 mg/ Sodium (Chloride) 50 mls @ 100 mls/hr IV Q8H [facility] Last Admin: 02/18/19 05:37 Dose: 100 mls/hr Vancomycin HCl 1 gm/ Sodium (Chloride) 250 mls @ 166.667 mls/hr IV Q24H [facility] Influenza Virus Vaccine (Fluzone Quad Syringe) 60 mcg IM .ONCE ONE Stop: 02/19/19 10:01 Ondansetron HCl (Zofran Odt) 4 mg PO Q6H PRN PRN Reason: Nausea able to take PO Ondansetron HCl (Zofran) 4 mg IV Q4H PRN PRN Reason: Nausea/Vomiting Pantoprazole Sodium (Protonix Iv) 40 mg IVPUSH DAILY [facility] Last Admin: 02/18/19 08:49 Dose: 40 mg Potassium Chloride (Klor-Con M20) 40 meq PO ONETIME ONE Stop: 02/18/19 17:01 Temazepam (Restoril) 15 mg PO BEDTIME PRN PRN Reason: Sleep Tramadol HCl (Ultram) 50 mg PO Q4H PRN PRN Reason: Pain Discontinued Medications Acetaminophen (Tylenol) 325 mg PO NOW ONE Stop: 02/17/19 20:57 Last Admin: 02/17/19 21:00 Dose: 325 mg Hydrocodone Bitart/Acetaminophen (Porter 325-5 Mg) 1 tab PO ONETIME ONE Stop: 02/17/19 20:57 Last Admin: 02/17/19 21:21 Dose: 1 tab Hydrocodone Bitart/Acetaminophen (Porter 325-5 Mg) 1 tab PO Q4H PRN PRN Reason: Pain (moderate 4-6) Last Admin: 02/18/19 08:56 Dose: 1 tab Bacitracin (Bacitracin Oint 1 Gm) Confirm Administered Dose 1 dose .ROUTE .STK- MED ONE Stop: 02/17/19 23:04 Last Admin: 02/18/19 03:25 Dose: Not Given Bacitracin (Bacitracin Oint 1 Gm) 1 dose TOP ONETIME ONE Stop: 02/17/19 23:08 Last Admin: 02/18/19 05:38 Dose: 1 dose Ceftriaxone Sodium 1 gm/ (Sodium Chloride) 50 mls @ 100 mls/hr IV ONETIME ONE Stop: 02/17/19 19:41 Last Admin: 02/17/19 19:23 Dose: 100 mls/hr Sodium Chloride (Normal Saline) 1,000 mls @ 999 mls/hr IV ASDIRECTED [facility] Last Admin: 02/17/19 18:23 Dose: 999 mls/hr Sodium Chloride (Normal Saline) 1,000 mls @ 999 mls/hr IV ASDIRECTED [facility] Last Admin: 02/17/19 19:55 Dose: 999 mls/hr Meropenem 1 gm/ Sodium (Chloride) 100 mls @ 200 mls/hr IV Q8H [facility] Last Admin: 02/17/19 20:56 Dose: 200 mls/hr Vancomycin HCl 1 gm/ Sodium (Chloride) 250 mls @ 166.667 mls/hr IV ONETIME ONE Stop: 02/17/19 23:29 Last Admin: 02/17/19 22:42 Dose: 166.667 mls/hr Influenza Virus Vaccine (Pharmacy To Dose - Influenza Vaccine) 1 each IM ONETIME ONE Stop: 02/18/19 10:01 Lorazepam (Ativan) 1 mg IV Q6H PRN PRN Reason: Nausea/Vomiting Morphine Sulfate (Morphine) 2 mg IVPUSH Q2H PRN PRN Reason: Pain (severe 7-10) Potassium Chloride (Klor-Con M20) 40 meq PO ONETIME ONE Stop: 02/18/19 08:31 Last Admin: 02/18/19 08:47 Dose: 40 meq - Exam Quality Assessment: DVT Prophylaxis General: Alert, Oriented, Cooperative, Mild Distress Lungs: Clear to Auscultation, Normal Respiratory Effort Cardiovascular: Regular Rate, Regular Rhythm, No Murmurs GI/Abdominal Exam: Soft, Non-Tender, No Organomegaly, No Distention Skin: Other (Ulcer lateral aspect right ankle, minimal surrounding cellulitis.) - Problem List Review Problem List Initiated/Reviewed/Updated: Yes - My Orders Last 24 Hours: My Active Orders 02/18/19 03:32 Influenza Vaccine Charge [RC] .DISCHARGE 02/18/19 11:19 traMADol [Ultram] 50 mg PO Q4H PRN 02/18/19 11:21 Discontinue Telemetry Monitoring [Cardiac Monitoring Discontinue] [RC] Click to Edit 02/18/19 17:00 Potassium Chloride [Klor-Con M20] 40 meq PO ONETIME ONE 02/19/19 05:00 BASIC METABOLIC PANEL,BMP [CHEM] Timed CBC WITH AUTO DIFF [HEME] Timed 02/19/19 10:00 FLU Vacc [id number](6MOS+)/PF [Fluzone Quad [id number] Syringe] 60 mcg IM .ONCE ONE - Plan Plan:: ASSESSMENT AND PLAN - Cellulitis with early sepsis - symptomatically improved since admission, blood pressure remains somewhat borderline -Antibiotic coverage with IV Vancomycin every 12 hours and IV Meropenem 1 gram every 8 hours, pending culture results -Follow-up cultures - urine, wound, blood -Blood testing am CBC, BMP IV Drug use - Heroin every other day, Meth at least 2 times a week. Potential for chronic hepatitis such as hepatitis C exists. discussed with Ms. Usama katz [facility] for help with IVDU after discharge from the hospital. Monitor for Opiate withdrawal. -Hepatitis serologies -HIV Tobacco dependence - smokes about half pack a day. -Encourage cessation -decline nicotine patch Urinary Tract Infection -coverage with antibiotic -urine culture pending Maintenance issues - - DVT prophylaxis - enoxaparin - GI prophylaxis - PPI - Nutrition - regular - Guido catheter - not indicated CODE STATUS - full Admission justification - This patient will be admitted for inpatient services and is medically appropriate meeting medical necessity for inpatient admission as outlined in my documentation. I reasonably expect the patient will require inpatient services that span a period time over 2 midnights. I reasonably expect this patient to be discharged or transferred within 96 hours [facility]. Disposition - anticipate discharge home after the hospital stay Primary care physician - Ann Adorno, [facility] Hospitalist - Festus Whitehead M.D.
[2019-02-18] MEDS: Meropenem 1 GM in Sodium Chloride 0.9% 100 ML IV SCH (14:12)
[2019-02-18] MEDS: Bisacodyl 5 MG Tab PO PRN (16:20)
[2019-02-18] MEDS: traMADol 50 MG Tab PO PRN ×2 (16:20→22:25)
[2019-02-18] MEDS: Morphine 2 MG/ML Syringe IVPUSH PRN (18:31)
[2019-02-18] MEDS: Sodium Chloride 0.9% 1,000 ML IV SCH (19:34)
[2019-02-19] MEDS: Meropenem 1 GM in Sodium Chloride 0.9% 100 ML IV SCH (01:11)
[2019-02-19] MEDS: Morphine 2 MG/ML Syringe IVPUSH PRN ×2 (01:56→17:50)
[2019-02-19] MEDS: traMADol 50 MG Tab PO PRN (03:13)
[2019-02-19] MEDS: Sodium Chloride 0.9% 1,000 ML IV SCH (03:14)
--- NOTE | 2019-02-19 06:33 | PCM.SN ---
- Free Text/Narrative Note: s: few calls from [address] [place] [address] during the night. Ms. Forrester continue to have right sided abdominal pain controlled only by narcotic meds. rating pain at 9/10. having a headache. low grade fevers during the night T. 38.8. p 82- rr 20 blood pressure 109/65. lab this am WBC now at 12.1 from 28, creatine normal 1.o was 2.2 right ankle culture positive strep A A; low grade fever, right sided abdominal pain with unknown cause, concerns of possible drug withdrawal from Heroin P: continue present medication CT Abdomen-pelvis to rule any acute or chronic process
[2019-02-19] MEDS: Pantoprazole 40 MG Tab.CR PO SCH (07:14)
--- NOTE | 2019-02-19 07:41 | CRLCT ---
INDICATION: Right-sided abdominal pain. TECHNIQUE: CT abdomen and pelvis without contrast. COMPARISON: None FINDINGS: Lower chest: Small dependent bilateral pleural effusions and basilar atelectasis. Liver: Unremarkable. Spleen: Unremarkable. Pancreas: Unremarkable. Gallbladder and bile ducts: Contracted gallbladder. Pericholecystic edema. Kidneys: Heterogeneous attenuation enlargement of right kidney with mild hydronephrosis and hydroureter. No radiopaque stone appreciated with poor visualization of the distal ureter beyond the sacral promontory. Strandy inflammatory attenuation around the right kidney. Normal appearance of left kidney and collecting system. No ureteral dilatation on the left. Adrenal glands: Unremarkable. GI tract: Large volume of formed stool in the colon. No dilatation of small bowel. Appendix is not seen. Vascular structures: Unremarkable. Lymph nodes: Unremarkable. Miscellaneous: Small volume of ascites in the dependent peritoneum. Tiny fat filled periumbilical hernia. Query prior surgical incision at this site. Small amount of air in the subcutaneous adipose right mid abdomen likely from medication injection. Pelvic Organs: Tampon in the vagina. Bones: Unremarkable for age. IMPRESSION: Heterogeneous low-attenuation enlargement right kidney with mild hydronephrosis and proximal hydroureter but no radiopaque stone. Clinical correlation for pyelonephritis recommended. Recently passed stone with persistent obstructive uropathy appearances in the differential. Pathologic small volume of ascites in the dependent peritoneum. Constipation. Tiny bilateral pleural effusions and bibasilar atelectasis. If there is ongoing clinical concern, findings may be better characterized with repeat exam with enteric and intravenous contrast. Please note that all CT scans at this facility use dose modulation, iterative reconstruction, and/or weight-based dosing when appropriate to reduce radiation dose to as low as reasonably achievable. Dictated by Dao Sigala MD @ Feb 19 2019 7:31AM Signed by Dr. Dao Sigala @ Feb 19 2019 7:40AM
[2019-02-19] MEDS: Bacitracin Oint 28.35 GM Tube TOP SCH (09:19)
[2019-02-19] MEDS: Enoxaparin 40 MG/0.4 ML Syringe SUBCUT SCH (09:19)
[2019-02-19] MEDS: Acetaminophen/HYDROcodone 325-5 MG Tab PO PRN ×3 (09:24→20:36)
--- NOTE | 2019-02-19 09:25 | PCM.PN ---
- General Info Date of Service: 02/19/19 Subjective Update: Ms. Forrester developed right flank and right lower quadrant abdominal pain over the last 24 hours. White blood cell count is improved significantly but she did have temperature elevation last night to 102. Because the pain is not feeling as well, denies pain in the right foot. CT scan of the abdomen pelvis was obtained which shows evidence of hydronephrosis/pyelonephritis right kidney. Mild dilatation of the proximal ureter, no evidence of stone. Functional Status: Reports: Tolerating Diet, Urinating - Review of Systems General: Reports: Fever, Weakness, Chills Pulmonary: Reports: No Symptoms Cardiovascular: Reports: No Symptoms Gastrointestinal: Reports: Abdominal Pain, Decreased Appetite. Denies: Diarrhea , Difficulty Swallowing, Nausea, Vomiting Genitourinary: Reports: Flank Pain. Denies: Dysuria, Frequency, Burning, Incontinence, Hematuria - Patient Data Vitals - Most Recent: Last Vital Signs Temp 98.5 F 02/19/19 07:12 Pulse 79 02/19/19 07:12 Resp 16 02/19/19 07:12 BP 98/63 02/19/19 07:12 Pulse Ox 98 02/19/19 07:12 Weight - Most Recent: 124 lb I&O - Last 24 Hours: Intake & Output 02/18/19 02/19/19 02/19/19 23:59 06:59 14:59 Intake Total Output Total 600 Balance -600 Lab Results Last 24 Hours: Laboratory Results - last 24 hr 02/19/19 02/19/19 Range/Units 05:11 05:11 WBC 12.1 H (4.5-11.0) K/uL RBC 3.39 (3.30-5.50) M/uL Hgb 9.9 L (12.0-15.0) g/dL Hct 29.5 L (36.0-48.0) % MCV 87 (80-98) fL MCH 29 (27-31) pg MCHC 34 (32-36) % Plt Count 214 (150-400) K/uL Neut % (Auto) 78 H (36-66) % Lymph % (Auto) 12 L (24-44) % [place] % (Auto) 10 H (2-6) % Eos % (Auto) 1 L (2-4) % Baso % (Auto) 0 (0-1) % Sodium 133 L (140-148) mmol/L Potassium 4.5 (3.6-5.2) mmol/L Chloride 105 (100-108) mmol/L Carbon Dioxide 23 (21-32) mmol/L Anion Gap 9.5 (5.0-14.0) mmol/L BUN 12 D (7-18) mg/dL Creatinine 1.0 (0.6-1.0) mg/dL Est Cr Clr Drug Dosing 62.07 mL/min Estimated GFR (MDRD) > 60 (>60) Glucose 98 (74-106) mg/dL Calcium 7.2 L (8.5-10.1) mg/dL Sulaiman Results Last 24 Hours: Microbiology 02/17/19 20:54 Gram Stain - Final Ankle, Right Wound Culture - Preliminary Streptococcus Group A 02/17/19 19:40 Urine Culture - Preliminary Urine, Bladder MIXED POSITIVE MAYTE DAY 1 02/17/19 18:35 Aerobic Blood Culture - Preliminary Blood - Arm, Left NO GROWTH AFTER 1 DAY Anaerobic Blood Culture - Preliminary NO GROWTH AFTER 1 DAY 02/17/19 18:30 Aerobic Blood Culture - Preliminary Blood - Arm, Left NO GROWTH AFTER 1 DAY Anaerobic Blood Culture - Preliminary NO GROWTH AFTER 1 DAY Med Orders - Current: Current Medications Hydrocodone Bitart/Acetaminophen ([place] 325-5 Mg) 1 tab PO Q4H PRN PRN Reason: Pain Last Admin: 02/18/19 23:28 Dose: 1 tab Albuterol (Proventil Neb Soln) 2.5 mg NEB Q4H PRN PRN Reason: Shortness Of Breath/wheezing Bacitracin (Bacitracin Oint) 0 gm TOP DAILY [facility] Last Admin: 02/18/19 08:47 Dose: 1 applic Bisacodyl (Dulcolax) 5 mg PO DAILY PRN PRN Reason: Constipation Last Admin: 02/18/19 16:20 Dose: 5 mg Docusate Sodium (Colace) 100 mg PO BID PRN PRN Reason: Constipation Enoxaparin Sodium (Lovenox) 40 mg SUBCUT DAILY [facility] Ceftriaxone Sodium 1 gm/ (Sodium Chloride) 50 mls @ 100 mls/hr IV Q24H [facility] Clindamycin Phosphate 600 mg/ (Sodium Chloride) 54 mls @ 100 mls/hr IV Q8H [facility] Influenza Virus Vaccine (Fluzone Quad 8786-8883 Syringe) 60 mcg IM .ONCE ONE Stop: 02/19/19 10:01 Lactobacillus Rhamnosus (Culturelle) 1 cap PO BID GINETTE Morphine Sulfate (Morphine) 2 mg IVPUSH Q2H PRN PRN Reason: Pain Last Admin: 02/19/19 01:56 CDT Dose: 2 mg Ondansetron HCl (Zofran Odt) 4 mg PO Q6H PRN PRN Reason: Nausea able to take PO Ondansetron HCl (Zofran) 4 mg IV Q4H PRN PRN Reason: Nausea/Vomiting Last Admin: 02/19/19 01:53 CDT Dose: 4 mg Pantoprazole Sodium (Protonix) 40 mg PO ACBREAKFAST [facility] Last Admin: 02/19/19 07:14 Dose: 40 mg Temazepam (Restoril) 15 mg PO BEDTIME PRN PRN Reason: Sleep Tramadol HCl (Ultram) 50 mg PO Q4H PRN PRN Reason: Pain Last Admin: 02/19/19 03:13 Dose: 50 mg Discontinued Medications Acetaminophen (Tylenol) 325 mg PO NOW ONE Stop: 02/17/19 20:57 Last Admin: 02/17/19 21:00 Dose: 325 mg Hydrocodone Bitart/Acetaminophen ([place] 325-5 Mg) 1 tab PO ONETIME ONE Stop: 02/17/19 20:57 Last Admin: 02/17/19 21:21 Dose: 1 tab Hydrocodone Bitart/Acetaminophen ([place] 325-5 Mg) 1 tab PO Q4H PRN PRN Reason: Pain (moderate 4-6) Last Admin: 02/18/19 08:56 Dose: 1 tab Bacitracin (Bacitracin Oint 1 Gm) Confirm Administered Dose 1 dose .ROUTE .STK- MED ONE Stop: 02/17/19 23:04 Last Admin: 02/18/19 03:25 Dose: Not Given Bacitracin (Bacitracin Oint 1 Gm) 1 dose TOP ONETIME ONE Stop: 02/17/19 23:08 Last Admin: 02/18/19 05:38 Dose: 1 dose Enoxaparin Sodium (Lovenox) 30 mg SUBCUT DAILY [facility] Last Admin: 02/18/19 08:48 Dose: 30 mg Ceftriaxone Sodium 1 gm/ (Sodium Chloride) 50 mls @ 100 mls/hr IV ONETIME ONE Stop: 02/17/19 19:41 Last Admin: 02/17/19 19:23 Dose: 100 mls/hr Sodium Chloride (Normal Saline) 1,000 mls @ 999 mls/hr IV ASDIRECTED [facility] Last Admin: 02/17/19 18:23 Dose: 999 mls/hr Sodium Chloride (Normal Saline) 1,000 mls @ 999 mls/hr IV ASDIRECTED [facility] Last Admin: 02/17/19 19:55 Dose: 999 mls/hr Meropenem 1 gm/ Sodium (Chloride) 100 mls @ 200 mls/hr IV Q8H [facility] Last Admin: 02/17/19 20:56 Dose: 200 mls/hr Sodium Chloride (Normal Saline) 1,000 mls @ 125 mls/hr IV ASDIRECTED [facility] Last Admin: 02/19/19 03:14 Dose: 125 mls/hr Meropenem 500 mg/ Sodium (Chloride) 50 mls @ 100 mls/hr IV Q8H [facility] Last Admin: 02/18/19 05:37 Dose: 100 mls/hr Vancomycin HCl 1 gm/ Sodium (Chloride) 250 mls @ 166.667 mls/hr IV ONETIME ONE Stop: 02/17/19 23:29 Last Admin: 02/17/19 22:42 Dose: 166.667 mls/hr Vancomycin HCl 1 gm/ Sodium (Chloride) 250 mls @ 166.667 mls/hr IV Q24H [facility] Meropenem 1 gm/ Sodium (Chloride) 100 mls @ 200 mls/hr IV Q12H [facility] Last Admin: 02/19/19 01:11 CDT Dose: 200 mls/hr Vancomycin HCl 1 gm/ Sodium (Chloride) 250 mls @ 166.667 mls/hr IV Q12H [facility] Stop: 02/18/19 17:00 Last Admin: 02/18/19 15:05 Dose: 166.667 mls/hr Vancomycin HCl 1 gm/ Sodium (Chloride) 250 mls @ 166.667 mls/hr IV Q12H [facility] Last Admin: 02/19/19 03:14 Dose: 166.667 mls/hr Influenza Virus Vaccine (Pharmacy To Dose - Influenza Vaccine) 1 each IM ONETIME ONE Stop: 02/18/19 10:01 Lorazepam (Ativan) 1 mg IV Q6H PRN PRN Reason: Nausea/Vomiting Morphine Sulfate (Morphine) 2 mg IVPUSH Q2H PRN PRN Reason: Pain (severe 7-10) Pantoprazole Sodium (Protonix Iv) 40 mg IVPUSH DAILY GINETTE Last Admin: 02/18/19 08:49 Dose: 40 mg Potassium Chloride (Klor-Con M20) 40 meq PO ONETIME ONE Stop: 02/18/19 08:31 Last Admin: 02/18/19 08:47 Dose: 40 meq Potassium Chloride (Klor-Con M20) 40 meq PO ONETIME ONE Stop: 02/18/19 17:01 Last Admin: 02/18/19 16:23 Dose: 40 meq - Exam General: Alert, Oriented, Cooperative, Moderate Distress Lungs: Clear to Auscultation, Normal Respiratory Effort Cardiovascular: Regular Rate, Regular Rhythm, No Murmurs GI/Abdominal Exam: Soft, No Organomegaly, Tender. No: Distended, Guarding, Rigid, Rebound Back Exam: CVA Tenderness (R) - Problem List Review Problem List Initiated/Reviewed/Updated: Yes - My Orders Last 24 Hours: My Active Orders 02/18/19 11:19 traMADol [Ultram] 50 mg PO Q4H PRN 02/19/19 09:30 Clindamycin Phosphate [Cleocin] 600 mg Sodium Chloride 0.9% [Normal Saline] 50 ml IV Q8H Lactobacillus Rhamnosus GG [Culturelle] 1 cap PO BID cefTRIAXone [Rocephin] 1 gm Sodium Chloride 0.9% [Normal Saline] 50 ml IV Q24H 02/19/19 10:00 FLU Vacc [id number](6MOS+)/PF [Fluzone Quad Syringe] 60 mcg IM .ONCE ONE 02/20/19 05:00 CBC WITH AUTO DIFF [HEME] Timed - Plan Plan:: ASSESSMENT AND PLAN - Cellulitis with early sepsis - open wound right ankle appears to be healing with no evidence of surrounding cellulitis. Wound culture is growing group A strep. -Discontinue IV vancomycin and meropenem -Janette myosin 600 mg IV every 8 hours -Follow-up cultures - urine, wound, blood Right pyelonephritis-new onset of pain and tenderness right flank and right lower quadrant. CT scan shows mild hydronephrosis as well as enlargement of the proximal ureter. 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 Potential for chronic hepatitis such as hepatitis C exists. discussed with Jeremy Usama call [employer] for help with IVDU after discharge from the hospital. Monitor for Opiate withdrawal. -Hepatitis serologies -HIV Tobacco dependence - smokes about half pack a day. -Encourage cessation -decline nicotine patch Urinary Tract Infection -coverage with antibiotic -urine culture pending Maintenance issues - - DVT prophylaxis - enoxaparin - GI prophylaxis - PPI - Nutrition - regular - Guido catheter - not indicated CODE STATUS - full Admission justification - This patient will be admitted for inpatient services and is medically appropriate meeting medical necessity for inpatient admission as outlined in my documentation. I reasonably expect the patient will require inpatient services that span a period time over 2 midnights. I reasonably expect this patient to be discharged or transferred within 96 hours [facility]. Disposition - anticipate discharge home after the hospital stay Primary care physician - Ann Adorno, [facility] Hospitalist - Festus Whitehead M.D.
[2019-02-19] MEDS: cefTRIAXone 1 GM in Sodium Chloride 0.9% 50 ML IV SCH (09:57)
[2019-02-19] MEDS: Lactobacillus Rhamnosus GG (Probiotic) Cap PO SCH ×2 (09:57→20:36)
[2019-02-19] MEDS ORDERED: FLU Vacc QS2019-20(6MOS+)/PF 60 MCG/0.5 ML SYRINGE IM ONE (10:00)
[2019-02-19] MEDS: Bisacodyl 5 MG Tab PO PRN (16:26)
[2019-02-20] MEDS: Acetaminophen/HYDROcodone 325-5 MG Tab PO PRN ×4 (02:16→22:46)
[2019-02-20] MEDS: Morphine 2 MG/ML Syringe IVPUSH PRN (03:40)
[2019-02-20] MEDS: Pantoprazole 40 MG Tab.CR PO SCH (09:49)
[2019-02-20] MEDS: Enoxaparin 40 MG/0.4 ML Syringe SUBCUT SCH (09:49)
[2019-02-20] MEDS: Lactobacillus Rhamnosus GG (Probiotic) Cap PO SCH ×2 (09:49→20:46)
[2019-02-20] MEDS: Bacitracin Oint 28.35 GM Tube TOP SCH (09:50)
[2019-02-20] MEDS: cefTRIAXone 1 GM in Sodium Chloride 0.9% 50 ML IV SCH (09:54)
--- NOTE | 2019-02-20 10:22 | PCM.PN ---
- General Info Date of Service: 02/20/19 Subjective Update: There were no acute events overnight. Still having at least moderate right- sided abdominal pain and right flank pain. Pain seems to be spreading a little bit today compared to yesterday but is not more severe. She did have a low- grade fever overnight. No complaints of nausea. Still having some dysuria. No complaints of right ankle pain. Functional Status: Reports: Tolerating Diet. Denies: Pain Controlled - Review of Systems General: Reports: Fever Gastrointestinal: Reports: Abdominal Pain Genitourinary: Reports: Dysuria - Patient Data Vitals - Most Recent: Last Vital Signs Temp 36.2 C 02/20/19 06:57 Pulse 70 02/20/19 06:57 Resp 16 02/20/19 06:57 BP 103/69 02/20/19 06:57 Pulse Ox 100 02/20/19 06:57 Weight - Most Recent: 56.245 kg I&O - Last 24 Hours: Intake & Output 02/19/19 02/20/19 02/20/19 22:59 06:59 14:59 Intake Total 1495 50 Output Total 900 1000 700 Balance 595 -950 -700 Lab Results Last 24 Hours: Laboratory Results - last 24 hr 02/20/19 Range/Units 04:42 WBC 8.0 (4.5-11.0) K/uL RBC 3.55 (3.30-5.50) M/uL Hgb 10.2 L (12.0-15.0) g/dL Hct 30.9 L (36.0-48.0) % MCV 87 (80-98) fL MCH 29 (27-31) pg MCHC 33 (32-36) % Plt Count 238 (150-400) K/uL Neut % (Auto) 72 H (36-66) % Lymph % (Auto) 13 L (24-44) % [place] % (Auto) 14 H (2-6) % Eos % (Auto) 1 L (2-4) % Baso % (Auto) 0 (0-1) % Sulaiman Results Last 24 Hours: Microbiology 02/17/19 20:54 Gram Stain - Final Ankle, Right Wound Culture - Preliminary Streptococcus Group A 02/17/19 19:40 Urine Culture - Final Urine, Bladder MIXED POSITIVE MAYTE DAY 2 02/17/19 18:30 Aerobic Blood Culture - Preliminary Blood - Arm, Left NO GROWTH AFTER 2 DAYS Anaerobic Blood Culture - Preliminary NO GROWTH AFTER 2 DAYS 02/17/19 18:35 Aerobic Blood Culture - Preliminary Blood - Arm, Left NO GROWTH AFTER 2 DAYS Anaerobic Blood Culture - Preliminary NO GROWTH AFTER 2 DAYS Med Orders - Current: Current Medications Hydrocodone Bitart/Acetaminophen ([place] 325-5 Mg) 1 tab PO Q4H PRN PRN Reason: Pain Last Admin: 02/20/19 02:16 Dose: 1 tab Albuterol (Proventil Neb Soln) 2.5 mg NEB Q4H PRN PRN Reason: Shortness Of Breath/wheezing Bacitracin (Bacitracin Oint) 0 gm TOP DAILY [facility] Last Admin: 02/20/19 09:50 Dose: 1 applic Bisacodyl (Dulcolax) 5 mg PO DAILY PRN PRN Reason: Constipation Last Admin: 02/19/19 16:26 Dose: 5 mg Docusate Sodium (Colace) 100 mg PO BID PRN PRN Reason: Constipation Enoxaparin Sodium (Lovenox) 40 mg SUBCUT DAILY [facility] Last Admin: 02/20/19 09:49 Dose: 40 mg Ceftriaxone Sodium 1 gm/ (Sodium Chloride) 50 mls @ 100 mls/hr IV Q24H [facility] Last Admin: 02/20/19 09:54 Dose: 100 mls/hr Clindamycin Phosphate 600 mg/ (Sodium Chloride) 54 mls @ 100 mls/hr IV Q8H [facility] Last Admin: 02/20/19 03:30 Dose: 100 mls/hr Lactobacillus Rhamnosus (Culturelle) 1 cap PO BID [facility] Last Admin: 02/20/19 09:49 Dose: 1 cap Morphine Sulfate (Morphine) 2 mg IVPUSH Q2H PRN PRN Reason: Pain Last Admin: 02/20/19 03:40 Dose: 2 mg Ondansetron HCl (Zofran Odt) 4 mg PO Q6H PRN PRN Reason: Nausea able to take PO Ondansetron HCl (Zofran) 4 mg IV Q4H PRN PRN Reason: Nausea/Vomiting Last Admin: 02/19/19 01:53 CDT Dose: 4 mg Pantoprazole Sodium (Protonix) 40 mg PO ACBREAKFAST [facility] Last Admin: 02/20/19 09:49 Dose: 40 mg Temazepam (Restoril) 15 mg PO BEDTIME PRN PRN Reason: Sleep Tramadol HCl (Ultram) 50 mg PO Q4H PRN PRN Reason: Pain Last Admin: 02/19/19 03:13 Dose: 50 mg Discontinued Medications Acetaminophen (Tylenol) 325 mg PO NOW ONE Stop: 02/17/19 20:57 Last Admin: 02/17/19 21:00 Dose: 325 mg Hydrocodone Bitart/Acetaminophen ([place] 325-5 Mg) 1 tab PO ONETIME ONE Stop: 02/17/19 20:57 Last Admin: 02/17/19 21:21 Dose: 1 tab Hydrocodone Bitart/Acetaminophen ([place] 325-5 Mg) 1 tab PO Q4H PRN PRN Reason: Pain (moderate 4-6) Last Admin: 02/18/19 08:56 Dose: 1 tab Bacitracin (Bacitracin Oint 1 Gm) Confirm Administered Dose 1 dose .ROUTE .STK- MED ONE Stop: 02/17/19 23:04 Last Admin: 02/18/19 03:25 Dose: Not Given Bacitracin (Bacitracin Oint 1 Gm) 1 dose TOP ONETIME ONE Stop: 02/17/19 23:08 Last Admin: 02/18/19 05:38 Dose: 1 dose Enoxaparin Sodium (Lovenox) 30 mg SUBCUT DAILY [facility] Last Admin: 02/18/19 08:48 Dose: 30 mg Ceftriaxone Sodium 1 gm/ (Sodium Chloride) 50 mls @ 100 mls/hr IV ONETIME ONE Stop: 02/17/19 19:41 Last Admin: 02/17/19 19:23 Dose: 100 mls/hr Sodium Chloride (Normal Saline) 1,000 mls @ 999 mls/hr IV ASDIRECTED [facility] Last Admin: 02/17/19 18:23 Dose: 999 mls/hr Sodium Chloride (Normal Saline) 1,000 mls @ 999 mls/hr IV ASDIRECTED [facility] Last Admin: 02/17/19 19:55 Dose: 999 mls/hr Meropenem 1 gm/ Sodium (Chloride) 100 mls @ 200 mls/hr IV Q8H [facility] Last Admin: 02/17/19 20:56 Dose: 200 mls/hr Sodium Chloride (Normal Saline) 1,000 mls @ 125 mls/hr IV ASDIRECTED [facility] Last Admin: 02/19/19 03:14 Dose: 125 mls/hr Meropenem 500 mg/ Sodium (Chloride) 50 mls @ 100 mls/hr IV Q8H [facility] Last Admin: 02/18/19 05:37 Dose: 100 mls/hr Vancomycin HCl 1 gm/ Sodium (Chloride) 250 mls @ 166.667 mls/hr IV ONETIME ONE Stop: 02/17/19 23:29 Last Admin: 02/17/19 22:42 Dose: 166.667 mls/hr Vancomycin HCl 1 gm/ Sodium (Chloride) 250 mls @ 166.667 mls/hr IV Q24H [facility] Meropenem 1 gm/ Sodium (Chloride) 100 mls @ 200 mls/hr IV Q12H [facility] Last Admin: 02/19/19 01:11 CDT Dose: 200 mls/hr Vancomycin HCl 1 gm/ Sodium (Chloride) 250 mls @ 166.667 mls/hr IV Q12H [facility] Stop: 02/18/19 17:00 Last Admin: 02/18/19 15:05 Dose: 166.667 mls/hr Vancomycin HCl 1 gm/ Sodium (Chloride) 250 mls @ 166.667 mls/hr IV Q12H [facility] Last Admin: 02/19/19 03:14 Dose: 166.667 mls/hr Influenza Virus Vaccine (Pharmacy To Dose - Influenza Vaccine) 1 each IM ONETIME ONE Stop: 02/18/19 10:01 Influenza Virus Vaccine (Fluzone Quad [id number] Syringe) 60 mcg IM .ONCE ONE Stop: 02/19/19 10:01 Last Admin: 02/19/19 09:20 Dose: Not Given Lorazepam (Ativan) 1 mg IV Q6H PRN PRN Reason: Nausea/Vomiting Morphine Sulfate (Morphine) 2 mg IVPUSH Q2H PRN PRN Reason: Pain (severe 7-10) Pantoprazole Sodium (Protonix Iv) 40 mg IVPUSH DAILY [facility] Last Admin: 02/18/19 08:49 Dose: 40 mg Potassium Chloride (Klor-Con M20) 40 meq PO ONETIME ONE Stop: 02/18/19 08:31 Last Admin: 02/18/19 08:47 Dose: 40 meq Potassium Chloride (Klor-Con M20) 40 meq PO ONETIME ONE Stop: 02/18/19 17:01 Last Admin: 02/18/19 16:23 Dose: 40 meq - Exam Quality Assessment: No: Supplemental Oxygen General: Alert, Oriented, Cooperative, No Acute Distress Lungs: Clear to Auscultation, Normal Respiratory Effort Cardiovascular: Regular Rate, Regular Rhythm GI/Abdominal Exam: Soft, No Distention, Tender Extremities: No Pedal Edema. No: Increased Warmth Skin: Warm, Dry Wound/Incisions: No Drainage. No: Erythema Psy/Mental Status: Alert, Normal Affect - Problem List Review Problem List Initiated/Reviewed/Updated: Yes - My Orders Last 24 Hours: My Active Orders 02/20/19 10:21 Up ad Monique [RC] ASDIRECTED 02/20/19 10:30 Ketorolac [Toradol] 30 mg IVPUSH Q6H - Plan Plan:: ASSESSMENT AND PLAN - Cellulitis of the right ankle with early sepsis - open wound right ankle appears to be healing well. Sepsis has resolved. Wound culture growing group A strep and a different gram-positive cocci with identification still pending. White count normal. -Continue clindamycin, change to oral -Follow-up cultures - urine, wound, blood Right pyelonephritis - CT scan shows mild hydronephrosis as well as enlargement of the proximal ureter. No obvious stones seen on CT scan area. Pain stable to slightly improved. Culture negative so far. 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 Potential for chronic hepatitis such as hepatitis C exists. Patient will be setting up outpatient follow-up with [email or web address] for help with IVDU after discharge from the hospital. -Hepatitis serologies Tobacco dependence - smokes about half pack a day. -Encourage cessation -decline nicotine patch Maintenance issues - - DVT prophylaxis - enoxaparin - GI prophylaxis - PPI - Nutrition - regular Disposition - anticipate discharge home after the hospital stay [facility] Donavon Gomez M.D.
[2019-02-20] MEDS ORDERED: Magnesium Hydroxide 400 MG/5 ML Susp 30 ML Cup PO PRN (11:18)
[2019-02-20] MEDS: Ketorolac 30 MG/ML SDV IVPUSH SCH ×3 (11:23→22:46)
[2019-02-20] MEDS: Clindamycin HCl 150 MG Cap PO SCH ×2 (13:56→20:46)
[2019-02-21] MEDS: Acetaminophen/HYDROcodone 325-5 MG Tab PO PRN ×2 (03:35→08:14)
[2019-02-21] MEDS: Ketorolac 30 MG/ML SDV IVPUSH SCH ×2 (03:36→10:38)
[2019-02-21] MEDS: Clindamycin HCl 150 MG Cap PO SCH (03:36)
[2019-02-21 07:18] VITALS: BP 97/57; PULSE 58
[2019-02-21] MEDS: Pantoprazole 40 MG Tab.CR PO SCH (08:07)
[2019-02-21] MEDS: Lactobacillus Rhamnosus GG (Probiotic) Cap PO SCH (08:08)
[2019-02-21] MEDS: Enoxaparin 40 MG/0.4 ML Syringe SUBCUT SCH (08:16)
[2019-02-21] MEDS: Bacitracin Oint 28.35 GM Tube TOP SCH (08:16)
[2019-02-21] MEDS: cefTRIAXone 1 GM in Sodium Chloride 0.9% 50 ML IV SCH (09:36)
--- NOTE | 2019-02-21 09:40 | PCM.DCSUM1 ---
Discharge Summary - Hospital Course Brief History: 28 yr old female with a hx of active IVDU who presented with right ankle redness, pain and swelling. She was admitted for management of cellulitis and sepsis of the right ankle. Diagnosis: Stroke: No - Discharge Data Discharge Date: 02/21/19 Discharge Disposition: Home, Self-Care 01 Condition: Good - Referral to Home Health Primary Care Physician: PCP None - Discharge Diagnosis/Problem(s) (1) Cellulitis SNOMED Code(s): 603384167 ICD Code: L03.90 - CELLULITIS, UNSPECIFIED Status: Acute Priority: High Current Visit: Yes Qualifiers: Site of cellulitis: extremity Site of cellulitis of extremity: lower extremity Laterality: right Qualified Code(s): L03.115 - Cellulitis of right lower limb (2) Sepsis SNOMED Code(s): 92655607 ICD Code: A41.9 - SEPSIS, UNSPECIFIED ORGANISM Status: Acute Current Visit: Yes Qualifiers: Sepsis type: methicillin susceptible Staphylococcus aureus Sepsis acute organ dysfunction status: without acute organ dysfunction Qualified Code(s): A41.01 - Sepsis due to Methicillin susceptible Staphylococcus aureus (3) Pyelonephritis SNOMED Code(s): 50793906 ICD Code: N12 - TUBULO-INTERSTITIAL NEPHRITIS, NOT SPCF ACUTE OR CHRONIC Status: Acute Current Visit: Yes Problem Details: Right pyelonephritis (4) Tobacco dependence SNOMED Code(s): 84081812 ICD Code: F17.200 - NICOTINE DEPENDENCE, UNSPECIFIED, UNCOMPLICATED Status : Chronic Priority: High Current Visit: Yes (5) IVDU (intravenous drug user) SNOMED Code(s): 583701326 ICD Code: F19.90 - OTHER PSYCHOACTIVE SUBSTANCE USE, UNSPECIFIED, UNCOMPLICATED Status: Chronic Priority: High Current Visit: Yes - Patient Summary/Data Hospital Course: Emeli presented to the emergency room with right ankle pain, swelling and redness. Workup in the emergency room suggested cellulitis of the right ankle with evidence for sepsis. Cultures were obtained, broad-spectrum antibiotics initiated and she received IV fluid boluses. Overnight following admission she did show some clinical improvement. The redness and swelling are improving over the lateral aspect of the right ankle. Broad-spectrum antibiotics were continued while cultures were pending. Overnight on the second night of hospitalization the patient developed fever greater than 101 as well as right lateral abdominal pain and right flank pain. A CT scan of the abdomen and pelvis was obtained and this showed evidence for mild to moderate hydronephrosis as well as hydroureter on the right. This was thought to be most likely secondary to pyelonephritis. I suspect the infection was present on admission but was a smoldering and had not yet manifested. Antibiotics were adjusted to more broad-spectrum antibiotics at this point. By the next morning her wound culture was growing group A strep. Antibiotics were de-escalated to ceftriaxone to cover the pyelonephritis and clindamycin to cover the group A strep in the right ankle cellulitis. She had ongoing clinical improvement. White blood cell count was trending down. Temperature curve was improving. Appetite was improving. The pain was steadily improving. Ultimately her urine culture did not grow out any specific bacteria but with a high clinical suspicion for pyelonephritis we have elected to treat for a total of 10 days. Her wound culture from the right ankle grew out both a group A strep as well as garza sensitive staph aureus. Have elected to utilize cefdinir to cover both the ankle infection and the pyelonephritis. She will need 7 more days of antibiotic therapy after hospital discharge. She has follow-up scheduled in the clinic to both follow-up her hospital stay and establish care next week. During the early part of the hospital stay and again at the end we did discuss her maybe drug use. The patient reports that she has resources available to her and support from her father. She is interested in following up on these to try to get away from IV drug use. - Patient Instructions Diet: Regular Diet as Tolerated Activity: As Tolerated Activity, Other: May return to work 02/23 with no restrictions Driving: Do Not Drive (if taking pain pills ) Showering/Bathing: May Shower Notify Provider of: Fever, Increased Pain, Nausea and/or Vomiting Other/Special Instructions: 1. Take cefdinir 300 mg twice daily. This is an antibiotic used to treat your kidney infection and your ankle infection. Your first dose is due tomorrow morning. 2. Take ibuprofen 600 mg every six hours as needed for mild pain or low grade fever. Take hydrocodone every six hours as needed for moderate pain. 3. You may return to work on , Feb 23 without restrictions. 4. Follow up at the [facility] to establish care - Discharge Plan *PRESCRIPTION DRUG MONITORING PROGRAM REVIEWED*: Not Applicable *COPY OF PRESCRIPTION DRUG MONITORING REPORT IN PATIENT DESTINY: Not Applicable Prescriptions/Med Rec: Acetaminophen/HYDROcodone [[place] 325-5 MG] 1 tab PO Q6H PRN #8 tablet PRN Reason: Pain (Moderate 4-6) Cefdinir 300 mg PO BID #14 capsule Home Medications: Home Meds Acetaminophen/HYDROcodone [[place] 325-5 MG] 1 tab PO Q6H PRN #8 tablet 02/21/19 [ Rx] Cefdinir 300 mg PO BID #14 capsule 02/21/19 [Rx] Oxygen Therapy Mode: Room Air Patient Handouts: Cefdinir capsules, Pyelonephritis, Adult, [id number] Referrals: Bushra Bagley DO [Physician] - 03/02/19 10:30 am (f/u in one week - f/u hospital stay for cellulitis and pyelonephritis, establish care ) - Discharge Summary/Plan Comment DC Time >30 min.: No - Patient Data Vitals - Most Recent: Last Vital Signs Temp 35.4 C 02/21/19 07:16 Pulse 58 L 02/21/19 07:16 Resp 16 02/21/19 07:16 BP 97/57 L 02/21/19 07:16 Pulse Ox 98 02/21/19 07:16 Weight - Most Recent: 56.245 kg I&O - Last 24 hours: Intake & Output 02/20/19 02/21/19 02/21/19 22:59 06:59 14:59 Intake Total 440 540 240 Output Total 200 300 Balance 240 240 240 CITLALLI Results - Last 24 hrs: Microbiology 02/17/19 20:54 Gram Stain - Final Ankle, Right Wound Culture - Final Streptococcus Group A Staphylococcus Aureus 02/17/19 18:35 Aerobic Blood Culture - Preliminary Blood - Arm, Left NO GROWTH AFTER 3 DAYS Anaerobic Blood Culture - Preliminary NO GROWTH AFTER 3 DAYS 02/17/19 18:30 Aerobic Blood Culture - Preliminary Blood - Arm, Left NO GROWTH AFTER 3 DAYS Anaerobic Blood Culture - Preliminary NO GROWTH AFTER 3 DAYS 02/17/19 19:40 Urine Culture - Final Urine, Bladder MIXED POSITIVE MAYTE DAY 2 Med Orders - Current: Current Medications Hydrocodone Bitart/Acetaminophen ([place] 325-5 Mg) 1 tab PO Q4H PRN PRN Reason: Pain Last Admin: 02/21/19 08:14 Dose: 1 tab Albuterol (Proventil Neb Soln) 2.5 mg NEB Q4H PRN PRN Reason: Shortness Of Breath/wheezing Bacitracin (Bacitracin Oint) 0 gm TOP DAILY [facility] Last Admin: 02/21/19 08:16 Dose: 1 applic Bisacodyl (Dulcolax) 5 mg PO DAILY PRN PRN Reason: Constipation Last Admin: 02/19/19 16:26 Dose: 5 mg Clindamycin HCl (Cleocin) 450 mg PO Q8H [facility] Last Admin: 02/21/19 03:36 Dose: 450 mg Docusate Sodium (Colace) 100 mg PO BID PRN PRN Reason: Constipation Enoxaparin Sodium (Lovenox) 40 mg SUBCUT DAILY [facility] Last Admin: 02/21/19 08:16 Dose: 40 mg Ceftriaxone Sodium 1 gm/ (Sodium Chloride) 50 mls @ 100 mls/hr IV Q24H [facility] Last Admin: 02/21/19 09:36 Dose: 100 mls/hr Ketorolac Tromethamine (Toradol) 30 mg IVPUSH Q6H [facility] Stop: 02/25/19 10:21 Last Admin: 02/21/19 03:36 Dose: 30 mg Lactobacillus Rhamnosus (Culturelle) 1 cap PO BID [facility] Last Admin: 02/21/19 08:08 Dose: 1 cap Magnesium Hydroxide (Milk Of Magnesia) 30 ml PO DAILY PRN PRN Reason: Constipation Last Admin: 02/20/19 17:43 Dose: 30 ml Morphine Sulfate (Morphine) 2 mg IVPUSH Q2H PRN PRN Reason: Pain Last Admin: 02/20/19 03:40 Dose: 2 mg Ondansetron HCl (Zofran Odt) 4 mg PO Q6H PRN PRN Reason: Nausea able to take PO Ondansetron HCl (Zofran) 4 mg IV Q4H PRN PRN Reason: Nausea/Vomiting Last Admin: 02/19/19 01:53 CDT Dose: 4 mg Pantoprazole Sodium (Protonix) 40 mg PO ACBREAKFAST [facility] Last Admin: 02/21/19 08:07 Dose: 40 mg Senna/Docusate Sodium (Senna Plus) 1 tab PO BID [facility] Last Admin: 02/21/19 08:08 Dose: Not Given Temazepam (Restoril) 15 mg PO BEDTIME PRN PRN Reason: Sleep Tramadol HCl (Ultram) 50 mg PO Q4H PRN PRN Reason: Pain Last Admin: 02/19/19 03:13 Dose: 50 mg Discontinued Medications Acetaminophen (Tylenol) 325 mg PO NOW ONE Stop: 02/17/19 20:57 Last Admin: 02/17/19 21:00 Dose: 325 mg Hydrocodone Bitart/Acetaminophen ([place] 325-5 Mg) 1 tab PO ONETIME ONE Stop: 02/17/19 20:57 Last Admin: 02/17/19 21:21 Dose: 1 tab Hydrocodone Bitart/Acetaminophen ([place] 325-5 Mg) 1 tab PO Q4H PRN PRN Reason: Pain (moderate 4-6) Last Admin: 02/18/19 08:56 Dose: 1 tab Bacitracin (Bacitracin Oint 1 Gm) Confirm Administered Dose 1 dose .ROUTE .STK- MED ONE Stop: 02/17/19 23:04 Last Admin: 02/18/19 03:25 Dose: Not Given Bacitracin (Bacitracin Oint 1 Gm) 1 dose TOP ONETIME ONE Stop: 02/17/19 23:08 Last Admin: 02/18/19 05:38 Dose: 1 dose Enoxaparin Sodium (Lovenox) 30 mg SUBCUT DAILY [facility] Last Admin: 02/18/19 08:48 Dose: 30 mg Ceftriaxone Sodium 1 gm/ (Sodium Chloride) 50 mls @ 100 mls/hr IV ONETIME ONE Stop: 02/17/19 19:41 Last Admin: 02/17/19 19:23 Dose: 100 mls/hr Sodium Chloride (Normal Saline) 1,000 mls @ 999 mls/hr IV ASDIRECTED [facility] Last Admin: 02/17/19 18:23 Dose: 999 mls/hr Sodium Chloride (Normal Saline) 1,000 mls @ 999 mls/hr IV ASDIRECTED [facility] Last Admin: 02/17/19 19:55 Dose: 999 mls/hr Meropenem 1 gm/ Sodium (Chloride) 100 mls @ 200 mls/hr IV Q8H [facility] Last Admin: 02/17/19 20:56 Dose: 200 mls/hr Sodium Chloride (Normal Saline) 1,000 mls @ 125 mls/hr IV ASDIRECTED [facility] Last Admin: 02/19/19 03:14 Dose: 125 mls/hr Meropenem 500 mg/ Sodium (Chloride) 50 mls @ 100 mls/hr IV Q8H [facility] Last Admin: 02/18/19 05:37 Dose: 100 mls/hr Vancomycin HCl 1 gm/ Sodium (Chloride) 250 mls @ 166.667 mls/hr IV ONETIME ONE Stop: 02/17/19 23:29 Last Admin: 02/17/19 22:42 Dose: 166.667 mls/hr Vancomycin HCl 1 gm/ Sodium (Chloride) 250 mls @ 166.667 mls/hr IV Q24H [facility] Meropenem 1 gm/ Sodium (Chloride) 100 mls @ 200 mls/hr IV Q12H [facility] Last Admin: 02/19/19 01:11 CDT Dose: 200 mls/hr Vancomycin HCl 1 gm/ Sodium (Chloride) 250 mls @ 166.667 mls/hr IV Q12H [facility] Stop: 02/18/19 17:00 Last Admin: 02/18/19 15:05 Dose: 166.667 mls/hr Vancomycin HCl 1 gm/ Sodium (Chloride) 250 mls @ 166.667 mls/hr IV Q12H [facility] Last Admin: 02/19/19 03:14 Dose: 166.667 mls/hr Clindamycin Phosphate 600 mg/ (Sodium Chloride) 54 mls @ 100 mls/hr IV Q8H [facility] Last Admin: 02/20/19 03:30 Dose: 100 mls/hr Influenza Virus Vaccine (Pharmacy To Dose - Influenza Vaccine) 1 each IM ONETIME ONE Stop: 02/18/19 10:01 Influenza Virus Vaccine (Fluzone Quad [id number] Syringe) 60 mcg IM .ONCE ONE Stop: 02/19/19 10:01 Last Admin: 02/19/19 09:20 Dose: Not Given Lorazepam (Ativan) 1 mg IV Q6H PRN PRN Reason: Nausea/Vomiting Morphine Sulfate (Morphine) 2 mg IVPUSH Q2H PRN PRN Reason: Pain (severe 7-10) Pantoprazole Sodium (Protonix Iv) 40 mg IVPUSH DAILY [facility] Last Admin: 02/18/19 08:49 Dose: 40 mg Potassium Chloride (Klor-Con M20) 40 meq PO ONETIME ONE Stop: 02/18/19 08:31 Last Admin: 02/18/19 08:47 Dose: 40 meq Potassium Chloride (Klor-Con M20) 40 meq PO ONETIME ONE Stop: 02/18/19 17:01 Last Admin: 02/18/19 16:23 Dose: 40 meq - Exam Quality Assessment: Denies: Supplemental Oxygen General: Reports: Alert, Oriented, Cooperative, No Acute Distress Lungs: Reports: Normal Respiratory Effort GI/Abdominal Exam: Soft, No Distention Extremities: No Pedal Edema Psy/Mental Status: Reports: Alert, Normal Affect
[2019-02-21 13:09] LABS: HBSAG SCREEN Negative (Negative); HEP A AB, IGM Negative (Negative); HEP B CORE AB, IGM Negative (Negative); HEP C VIRUS AB >11.0 s/co ratio (0.0-0.9)
== END 2019-02-21 11:30 | disposition home or self-care (01) | DRG 872 ==
LOC: JP.ED 17:33 → JP.MS 20:58
PROVIDERS: ADMIT Hospitalist; ATTEND Internal Medicine
DX: A41.01 Sepsis due to Methicillin susceptible Staphylococcus aureus (principal); L03.115 Cellulitis of right lower limb; N10 Acute pyelonephritis; N13.30 Unspecified hydronephrosis; F19.90 Other psychoactive substance use, unspecified, uncomplicated; D50.9 Iron deficiency anemia, unspecified; F17.210 Nicotine dependence, cigarettes, uncomplicated; Z71.6 Tobacco abuse counseling
CPT/HCPCS: 36415; 73700-RT; 74176; 80048; 80053; 80074; 80305-QW; 81001; 81025; 82150; 83605; 83690; 85025; 86140; 86317; 87040; 87070; 87077; 87086; 87186; 87205; 87449; 93971-RT; 96361; 96365; 99284; 99285-25; A9270-GY; C9113; J0696; J1650; J1885; J2185; J2270; J2405; J3370; J3490; J7030; J7050

== ENCOUNTER 2019-06-29 14:08 | Emergency (ER) | payer MEDICAID ==
[2019-06-29 14:25] VITALS: BP 104/67; PULSE 67
[2019-06-29] MEDS ORDERED: cefTRIAXone 1 GM Vial IM ONE (14:28)
[2019-06-29] MEDS ORDERED: Ketorolac 60 MG/2 ML SDV IM ONE (14:30)
[2019-06-29] MEDS ORDERED: Acetaminophen/oxyCODONE 325-5 MG Tab PO ONE (14:31)
--- NOTE | 2019-06-29 14:34 | EDM.PDOC ---
ED HPI GENERAL MEDICAL PROBLEM - General Chief Complaint: ENT Problem Stated Complaint: RIGHT SIDE OF FACE SWOLLEN WITH TOOTH PAIN Time Seen by Provider: 06/29/19 14:32 Source of Information: Reports: Patient History Limitations: Reports: No Limitations - History of Present Illness INITIAL COMMENTS - FREE TEXT/NARRATIVE: pt was seen at [facility] 1.5 weeks ago. She was set up to return to have her teeth extracted on Jul 04. She was treated with pain meds and antibiotic at that time. In the last 2 days she has developed marked swelling of the rt facial area. Onset: Other ( started yesterday. 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 ) Respiratory: Reports: No Symptoms Cardiovascular: Reports: No Symptoms Endocrine: Reports: No Symptoms GI/Abdominal: Reports: No Symptoms : Reports: No Symptoms Musculoskeletal: Reports: No Symptoms ED EXAM, ENT - Physical Exam Exam: See Below Text/Narrative:: pt arrived with a very painful tooth. Pt has marked facial swelling on the rt side. Exam Limited By: No Limitations General Appearance: Alert, Anxious Ears: Normal TMs Nose: Normal Inspection Mouth/Throat: Other (pt has sig swelling on the upper gum line. She has very carious teeth. ) Head: Atraumatic Neck: Normal Inspection Respiratory/Chest: No Respiratory Distress Cardiovascular: Regular Rate, Rhythm GI/Abdominal: Soft, Non-Tender (Female) Exam: Deferred Rectal (Female) Exam: Deferred Back: Normal Inspection Extremities: Normal Inspection Neurological: Alert, Oriented, Normal Cognition Psychiatric: Normal Affect Course - Vital Signs Last Recorded V/S: Last Vital Signs Temp 35.5 C L 06/29/19 14:25 Pulse 67 06/29/19 14:25 Resp 14 06/29/19 14:25 BP 104/67 06/29/19 14:25 Pulse Ox 100 06/29/19 14:25 - Orders/Labs/Meds Labs: Laboratory Tests 06/29/19 Range/Units 14:39 WBC 8.6 (4.5-11.0) K/uL RBC 4.33 (3.30-5.50) M/uL Hgb 12.5 D (12.0-15.0) g/dL Hct 39.8 (36.0-48.0) % MCV 92 (80-98) fL MCH 29 (27-31) pg MCHC 31 L (32-36) % Plt Count 396 (150-400) K/uL Neut % (Auto) 72 H (36-66) % Lymph % (Auto) 21 L (24-44) % Metcalfe % (Auto) 6 (2-6) % Eos % (Auto) 1 L (2-4) % Baso % (Auto) 0 (0-1) % Meds: Medications Discontinued Medications Generic Name Dose Route Start Last Admin Trade Name Freq PRN Reason Stop Dose Admin Ceftriaxone Sodium 1 gm 06/29/19 14:28 06/29/19 14:42 Rocephin IM 06/29/19 14:29 1 gm ONETIME ONE Administration Ketorolac Tromethamine 60 mg 06/29/19 14:30 06/29/19 14:41 Toradol IM 06/29/19 14:31 60 mg ONETIME ONE Administration Oxycodone/Acetaminophen 1 tab 06/29/19 14:31 06/29/19 14:39 Percocet 325-5 Mg PO 06/29/19 14:32 1 tab ONETIME ONE Administration - Re-Assessments/Exams Free Text/Narrative Re-Assessment/Exam: 06/29/19 15:22 pt was given torodol 60 mg im, percocet 5/325 rocephen 1 gm im. Departure - Departure Time of Disposition: 15:15 Disposition: Home, Self-Care 01 Condition: Fair Clinical Impression: Infected tooth - Discharge Information Instructions: Dental Abscess Referrals: PCP,None [Primary Care Provider] - Forms: ED Department Discharge Care Plan Goals: dental appt on Wednesday, keflex 500mg tid, norco 5/325 q6h prn for pain Sepsis Event Note - Evaluation Sepsis Screening Result: No Definite Risk - Focused Exam Date Exam was Performed: 07/03/19 Time Exam was Performed: 07:42
--- NOTE | 2019-06-30 10:19 | CR ---
Sinus Less 3V CLINICAL HISTORY: Right facial swelling FINDINGS: A single Quinteros view of the face was obtained. Over the right the nasal and medial periorbital region there is a 4 cm circumscribed rounded density. This correlates to the patient's region of swelling. Paranasal sinuses are clear IMPRESSION: 4 cm density over the medial periorbital and right paranasal region. This may represent soft tissue mass or fluid collection. The CT or MRI of the orbits with contrast is recommended
== END 2019-06-29 15:28 | disposition home or self-care (01) ==
LOC: JP.ED 14:08
DX: K04.7 Periapical abscess without sinus (principal); K02.9 Dental caries, unspecified
CPT/HCPCS: 36415; 70210; 85025; 96372; 99284; A9270; J0696; J1885

== ENCOUNTER 2019-08-13 19:15 | Emergency (ER) | payer MEDICAID | END 2019-08-13 19:29 | disposition left against medical advice (07) | LOC: JP.ED 19:15 | DX: Z53.21 Procedure and treatment not carried out due to patient leaving prior to being seen by health care provider (principal) ==

== ENCOUNTER 2019-10-02 09:48 | Emergency (ER) | payer MEDICAID ==
[2019-10-02 10:05] VITALS: BP 113/71; PULSE 47
--- NOTE | 2019-10-02 10:25 | EDM.PDOC ---
ED HPI GENERAL MEDICAL PROBLEM - General Chief Complaint: ENT Problem Stated Complaint: TOOTH PAIN Time Seen by Provider: 10/02/19 10:15 Source of Information: Reports: Patient History Limitations: Reports: No Limitations - History of Present Illness INITIAL COMMENTS - FREE TEXT/NARRATIVE: 29-year-old female with advanced dental decay diffusely, has swelling and pain in the right maxillary area for the last 48 to 72 hours. Patient claims she has a dental appointment in 1 week. No fevers or chills. 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: , 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 Hematologic History: Reports: Anemia, Iron Deficiency - Infectious Disease History Infectious Disease History: Reports: Chicken Pox - Past Surgical History Head Surgeries/Procedures: Reports: None HEENT Surgical History: Reports: Oral Surgery Social & Family History - Family History Family Medical History: Noncontributory - Tobacco Use Smoking Status *Q: Heavy Tobacco Smoker Years of Tobacco use: 10 Packs/Tins Daily: 1 - Caffeine Use Caffeine Use: Reports: None - Recreational Drug Use Recreational Drug Use: No ED ROS ENT - Review of Systems Review Of Systems: See Below Constitutional: Denies: Fever, Chills HEENT: Reports: Other (Facial swelling and pain on the right side) Respiratory: Denies: Shortness of Breath Cardiovascular: Denies: Chest Pain GI/Abdominal: Denies: Nausea, Vomiting ED EXAM, ENT - Physical Exam Exam: See Below Exam Limited By: No Limitations General Appearance: Alert, No Apparent Distress, Other (Looks uncomfortable but not distressed) Mouth/Throat: Other (Some mild swelling in the gingival recess in the right maxillary area near the right zygomatic arch with tenderness to palpation. The remaining teeth that she has left are extremely eroded and decayed) Course - Vital Signs Last Recorded V/S: Last Vital Signs Temp 97.6 F 10/02/19 10:06 Pulse 47 L 10/02/19 10:06 Resp 16 10/02/19 10:06 BP 113/71 10/02/19 10:06 Pulse Ox 99 10/02/19 10:06 - Re-Assessments/Exams Free Text/Narrative Re-Assessment/Exam: 10/02/19 10:24 Patient will be placed on Augmentin 875 twice daily and can recheck in the next 48 to 72 hours if not improving satisfactorily. Continue on ibuprofen. 10/02/19 10:24 Adding Tylenol will be helpful as well. Departure - Departure Time of Disposition: 10:56 Disposition: Home, Self-Care 01 Clinical Impression: Dental abscess - Discharge Information Instructions: Dental Abscess, [id number] Referrals: PCP,None [Primary Care Provider] - Forms: ED Department Discharge Care Plan Goals: Take antibiotic twice daily with food until gone. Continue with ibuprofen and Tylenol for pain control. Sepsis Event Note (ED) - Evaluation Sepsis Screening Result: No Definite Risk - Focused Exam Vital Signs: Vital Signs Temp Pulse Resp BP Pulse Ox 10/02/19 10:06 97.6 F 47 L 16 113/71 99 10/02/19 10:03 97.6 F 47 L 16 113/71 99
== END 2019-10-02 10:56 | disposition home or self-care (01) ==
LOC: JP.ED 09:48
DX: K04.7 Periapical abscess without sinus (principal); K02.9 Dental caries, unspecified; F17.210 Nicotine dependence, cigarettes, uncomplicated
CPT/HCPCS: 99282

== ENCOUNTER 2020-04-03 16:31 | Emergency (ER) | payer MEDICAID ==
[2020-04-03 16:43] VITALS: BP 118/71; PULSE 91
--- NOTE | 2020-04-03 16:57 | EDM.PDOC ---
ED HPI GENERAL MEDICAL PROBLEM - General Chief Complaint: Laceration Stated Complaint: FELL CUT TO RT FOOT Time Seen by Provider: 04/03/20 16:45 Source of Information: Reports: Patient, Family History Limitations: Reports: No Limitations - History of Present Illness INITIAL COMMENTS - FREE TEXT/NARRATIVE: 30-year-old female with a right foot and lower leg injury. Less than 1 hour ago she tripped over a shovel sustaining a laceration to the top of her foot and turned her ankle and is now having pain in her foot extending up into the lateral aspect of her right lower leg. No other injury. Onset: Sudden Duration: Hour(s): (About 1 hour ago) Location: Reports: Lower Extremity, Right Quality: Reports: Burning, Stabbing Associated Symptoms: Reports: No Other Symptoms Right Feet Pain Score (Numeric/FACES): 9 - Related Data Allergies Allergy/AdvReac Type Severity Reaction Status Date / Time No Known Allergies Allergy Verified 04/03/20 16:49 Home Meds: Home Meds NK [No Known Home Meds] 06/29/19 [History] Past Medical History HEENT History: Reports: Other (See Below) Other HEENT History: dental caries Gastrointestinal History: Reports: Hemorrhoids Genitourinary History: Reports: UTI, Recurrent 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: , 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 Hematologic History: Reports: Anemia, Iron Deficiency - Infectious Disease History Infectious Disease History: Reports: Chicken Pox - Past Surgical History Head Surgeries/Procedures: Reports: None HEENT Surgical History: Reports: Oral Surgery Social & Family History - Family History Family Medical History: No Pertinent Family History - Caffeine Use Caffeine Use: Reports: None ED ROS GENERAL - Review of Systems Review Of Systems: See Below Constitutional: Denies: Fever, Chills HEENT: Reports: No Symptoms Respiratory: Denies: Shortness of Breath Cardiovascular: Denies: Chest Pain GI/Abdominal: Denies: Diarrhea Skin: Reports: Other (Laceration on top of the right foot) Neurological: Reports: Paresthesia (Burning sensation running up her right leg almost to the knee) ED EXAM, SKIN/RASH Exam: See Below Exam Limited By: No Limitations General Appearance: Alert, No Apparent Distress (Looks uncomfortable but not distressed) Respiratory/Chest: No Respiratory Distress Extremities: Other (Remainder of exam is limited to the right lower extremity. She has some tenderness to palpation over the proximal fibula but there is no swelling or deformity. A few superficial abrasions are present around the ankle and she has a 3.0 cm transverse laceration on top of the foot. It is painful to move the toes.) Neurological: Alert, Oriented Psychiatric: Anxious Course - Vital Signs Last Recorded V/S: Last Vital Signs Temp 98.6 F 04/03/20 16:45 Pulse 91 04/03/20 16:45 Resp 16 04/03/20 16:45 BP 118/71 04/03/20 16:45 Pulse Ox 96 04/03/20 16:45 - Orders/Labs/Meds Orders: Active Orders 24 hr Category Date Time Status Foot Comp Min 3V Rt [CR] Stat Exams 04/03/20 16:52 Taken Tibia Fibula Rt [CR] Stat Exams 04/03/20 16:52 Taken DME for Discharge [COMM] Stat Oth 04/03/20 17:35 Ordered Meds: Medications Discontinued Medications Generic Name Dose Route Start Last Admin Trade Name Freq PRN Reason Stop Dose Admin Bacitracin 1 dose 04/03/20 16:59 04/03/20 17:15 Bacitracin Oint 1 Gm TOP 04/03/20 17:00 1 dose ONETIME ONE Administration Lidocaine HCl 5 ml 04/03/20 16:59 04/03/20 17:16 Xylocaine-Mpf 1% INJECT 04/03/20 17:00 5 ml ONETIME ONE Administration - Re-Assessments/Exams Free Text/Narrative Re-Assessment/Exam: 04/03/20 16:57 An x-ray of the tib-fib and right foot were obtained. 04/03/20 17:35 X-rays were negative. The laceration was then anesthetized with 1% lidocaine and cleansed thoroughly with saline. All clots were removed. The laceration depth was to the surface of the tendon sheath but no tendons were involved, no deep structures were involved. The wound was then closed with seven 4-0 Ethilon sutures, topical bacitracin and a pressure dressing was applied. She tried to bear weight and was still having significant pain under the medial malleolus and the right lower leg so she was supplied with crutches. She can increase activity as tolerated and the sutures come out in 9 days, next Wednesday. She should recheck sooner if concerns of infection or not healing satisfactorily. Given 10 hydrocodone for extra pain control. Departure - Departure Time of Disposition: 17:57 Disposition: Home, Self-Care 01 Clinical Impression: Laceration of right foot Qualifiers: Encounter type: initial encounter Qualified Code(s): S91.311A - Laceration without foreign body, right foot, initial encounter Ankle sprain Qualifiers: Encounter type: initial encounter Involved ligament of ankle: deltoid ligament Laterality: right Qualified Code(s): S93.421A - Sprain of deltoid ligament of right ankle, initial encounter - Discharge Information Instructions: Sutured Wound Care, [id number] Referrals: PCP,None [Primary Care Provider] - Forms: ED Department Discharge Care Plan Goals: Keep the wound covered and clean while healing. Elevate the foot when able, a regular dose of ibuprofen or naproxen will help. Use stronger pain medication sparingly as directed if needed. Increase activity as tolerated and recheck next week if not improving satisfactorily or concerns of infection. Otherwise sutures can be removed in 9 days, next Wednesday. Sepsis Event Note (ED) - Evaluation Sepsis Screening Result: No Definite Risk - My Orders Last 24 Hours: My Active Orders 04/03/20 16:52 Foot Comp Min 3V Rt [CR] Stat Tibia Fibula Rt [CR] Stat 04/03/20 17:35 DME for Discharge [COMM] Stat - Assessment/Plan Last 24 Hours: My Active Orders 04/03/20 16:52 Foot Comp Min 3V Rt [CR] Stat Tibia Fibula Rt [CR] Stat 04/03/20 17:35 DME for Discharge [COMM] Stat
[2020-04-03] MEDS ORDERED: Bacitracin Oint 1 GM U/D Packet TOP ONE (16:59)
--- NOTE | 2020-04-04 09:02 | CR ---
Foot Comp Min 3V Rt, Tibia Fibula Rt CLINICAL HISTORY: Fall, pain FINDINGS: There is a vague linear lucency through the proximal fifth metatarsal. No definite cortical disruption is seen laterally. This may represent anatomic variant. Impression: Vague transverse linear lucency through the base of the fifth metatarsal of questionable significance. A nondisplaced fracture cannot be excluded. If clinical symptomatology persists or worsens a repeat exam is recommended. . Tibia Fibula Rt CLINICAL HISTORY: Fall, pain FINDINGS: Two views show no evidence of fracture or bone destruction. No soft tissue abnormality is seen. IMPRESSION: Negative
== END 2020-04-03 18:00 | disposition home or self-care (01) ==
LOC: JP.ED 16:31
DX: S91.311A Laceration without foreign body, right foot, initial encounter (principal); S93.401A Sprain of unspecified ligament of right ankle, initial encounter; W22.8XXA Striking against or struck by other objects, initial encounter
CPT/HCPCS: 12002; 73590; 73630; 99283; J2001

== ENCOUNTER 2020-04-29 01:32 | Emergency (ER) | payer MEDICAID ==
[2020-04-29 01:53] VITALS: BP 115/71; PULSE 98
[2020-04-29] MEDS ORDERED: Ketorolac 30 MG/ML SDV IM ONE (01:53)
[2020-04-29] MEDS ORDERED: Acetaminophen 325 MG Tab PO ONE (01:53)
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
[2020-04-29] MEDS ORDERED: Bacitracin Oint 1 GM U/D Packet TOP ONE (02:02)
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
== END 2020-04-29 10:00 | disposition home or self-care (01) ==
LOC: JP.ED 01:32
DX: S01.511A Laceration without foreign body of lip, initial encounter (principal); Y04.2XXA Assault by strike against or bumped into by another person, initial encounter
CPT/HCPCS: 73130; 96372; 99284; A9270; J1885; 99283

== ENCOUNTER 2020-10-22 04:49 | Emergency (ER) | payer MEDICAID ==
[2020-10-22 05:00] VITALS: BP 133/84; PULSE 103
[2020-10-22] MEDS ORDERED: Ketorolac 30 MG/ML SDV IM ONE (05:12)
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
[2020-10-22] MEDS ORDERED: fentaNYL 100 MCG/2 ML SDV IM ONE (05:32)
--- NOTE | 2020-10-22 09:04 | CR ---
Elbow Min 3V Rt CLINICAL HISTORY: E, fall FINDINGS: No acute fracture or dislocation is noted. The fat pads are in normal position. Impression: No fracture or dislocation .
== END 2020-10-22 05:56 | disposition home or self-care (01) ==
LOC: JP.ED 04:49
DX: S50.01XA Contusion of right elbow, initial encounter (principal); R60.0 Localized edema; Z72.0 Tobacco use; W10.9XXA Fall (on) (from) unspecified stairs and steps, initial encounter
CPT/HCPCS: 73080; 96372; 99283; J1885; J3010

== ENCOUNTER 2021-02-18 23:33 | Emergency (ER) | payer OTHER, MEDICAID ==
[2021-02-19] MEDS ORDERED: Sodium Chloride 0.9% 10 ML Syringe FLUSH PRN (00:22)
[2021-02-19] MEDS ORDERED: Ketorolac 30 MG/ML SDV IVPUSH ONE (00:23)
[2021-02-19] MEDS ORDERED: cefTRIAXone 2 GM in Sodium Chloride 0.9% 50 ML IV ONE (00:23)
[2021-02-19 00:30] VITALS: BP 126/89; PULSE 60
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
[2021-02-19] MEDS ORDERED: Sodium Chloride 0.9% 10 ML Syringe FLUSH ONE (00:44)
[2021-02-19] MEDS ORDERED: Sodium Chloride 0.9% 75 ML IV SCH (00:45)
[2021-02-19] MEDS ORDERED: Iopamidol 612 MG/ML 100 ML Bottle IV SCH (00:45)
[2021-02-19] MEDS ORDERED: Acetaminophen/HYDROcodone 325-5 MG Tab PO ONE (01:34)
--- NOTE | 2021-02-19 01:53 | CRLCT ---
For Patients: As a result of the Century Cures Act, medical imaging exams and procedure reports are released immediately into your electronic medical record. You may view this report before your referring provider. If you have questions, please contact your health care provider. INDICATION: Right periorbital cellulitis TECHNIQUE: CT maxillofacial with 100 cc Isovue-300 contrast. COMPARISON: October 26, 2010 FINDINGS: There is right-sided preseptal soft tissue swelling. No postseptal fat stranding identified. There is a small amount of air and fluid between the anterior globe and the undersurface of the upper eyelid. No soft tissue abscess identified. Old bilateral nasal bone fractures. IMPRESSION: Right preseptal orbital cellulitis. No abscess identified. Small amount of air and fluid between the right anterior globe and undersurface of the upper eyelid. Findings discussed with Dr. Castillo at 1:50am on 02/19/2021. There is chemosis on physical exam which is likely the cause of this finding. Please note that all CT scans at this facility use dose modulation, iterative reconstruction, and/or weight-based dosing when appropriate to reduce radiation dose to as low as reasonably achievable. Dictated by Belgica Prince MD @ 02/19/2021 1:51:37 AM (Electronically Signed)
== END 2021-02-19 04:00 ==
LOC: JP.ED 23:33
DX: H05.011 Cellulitis of right orbit (principal)
CPT/HCPCS: 36415; 70487; 80053; 85025; 86140; 96365; 96366; 96367; 96375; 99284; A9270; J0696; J1885; J3370; J7050; Q9967

== ENCOUNTER 2021-02-24 10:51 | Emergency (ER) | payer MEDICAID ==
[2021-02-24 11:32] VITALS: BP 112/79; PULSE 77
[2021-02-24] MEDS ORDERED: Acetaminophen/HYDROcodone 325-5 MG Tab PO ONE (11:37)
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
== END 2021-02-24 12:02 | disposition home or self-care (01) ==
LOC: JP.ED 10:51
DX: H10.33 Unspecified acute conjunctivitis, bilateral (principal)
CPT/HCPCS: 99282; A9270